=== PATIENT | male | born 1950 | race Caucasian/White ===

== ENCOUNTER → 2016-06-17 | Outpatient (CLI) | payer MEDICARE, BC ==
[2016-06-17 09:31] LABS: EKG EKG PERFORMED
[2016-06-17 10:07] LABS: Partial Thromboplastin Time 24.9 sec (22.0-30.0)
[2016-06-17 10:09] LABS: CH 30.5; CHCM 32.5; HCT 42.8 % (39.0-53.0); HDW 2.47; MCH 30.8 pg (25.0-35.0); MCHC 32.7 g/dL (31.0-37.0); MCV 94.1 fL (80.0-100.0); Mean Platelet Volume 7.2; RBC 4.55 m/uL (4.30-5.90); RDW 12.7 % (11.5-15.5); WBC 5.9 k/uL (3.8-10.6)
--- NOTE | 2016-06-17 10:14 | XR ---
EXAMINATION TYPE: XR chest 2V DATE OF EXAM: 06/17/2016 9:59 AM COMPARISON: Prior chest x-ray 23 June 2015 HISTORY: Preop for spine surgery, radiculitis thoracic spine TECHNIQUE: Frontal and lateral views of the chest are obtained. FINDINGS: Postop changes are present in the cervical thoracic junction level as on prior exam. No pn eumonia, pneumothorax, or pleural effusion. Cardiac mediastinal silhouette, pulmonary vascularity and millie within normal limits accounting for patient rotation. There are prominent lung volumes suggesti ng underlying COPD. IMPRESSION: No acute cardiopulmonary process. Stable exam.
[2016-06-17 10:28] LABS: Anion Gap 11 mmol/L; Blood Urea Nitrogen 3 mg/dL (9-20); Calcium 9.4 mg/dL (8.4-10.2); Carbon Dioxide 31 mmol/L (22-30); Chloride 101 mmol/L (98-107); Glucose 104 mg/dL (74-99); Non-African American GFR(MDRD) >60 (>60 ml/min/1.73 sqM); Potassium 4.2 mmol/L (3.5-5.1); Sodium 143 mmol/L (137-145)
[2016-06-17 10:33] LABS: Appearance,Urine Clear (Clear); Bilirubin,Urine Negative (Negative); Glucose,Urine (UA) Negative (Negative); Ketones,Urine Negative (Negative); Leukocyte Esterase,Urine Negative (Negative); Nitrite,Urine Negative (Negative); Protein,Urine Negative (Negative); Specific Gravity,Urine 1.005 (1.001-1.035); UA Billing (MACRO vs. MICRO) CHEM; Urobilinogen,Urine <2.0 mg/dL (<2.0)
== END | disposition home or self-care (01) ==
LOC: LABWHC1 09:19
PROVIDERS: ATTEND Neurological Surgery
DX: M54.14 Radiculopathy, thoracic region (principal)
CPT/HCPCS: 36415; 71020; 80048; 81003; 85027; 85610; 85730; 87086; 93005

== ENCOUNTER → 2016-09-07 | Outpatient (CLI) | payer MEDICARE, BC ==
[2016-09-07 08:57] LABS: Potassium 4.2 mmol/L (3.5-5.1)
== END | disposition home or self-care (01) ==
LOC: LABWHC1 08:01
PROVIDERS: ATTEND Otolaryngology
DX: E87.1 Hypo-osmolality and hyponatremia (principal); Z79.899 Other long term (current) drug therapy
CPT/HCPCS: 36415; 80051

== ENCOUNTER 2016-09-24 06:51 | Day surgery (SDC) | payer MEDICARE, BC ==
[~2016-09-24 06:51] MED LIST: LIDOCAINE 1% 20 ML VIAL (10MG/ML) FOR IV START INTRADERMA PRN
[2016-09-24] MEDS: LACTATED RINGERS 1,000 ML IV SCH ×2 (06:58→07:06)
[2016-09-24 07:20] LABS: Glucose,Whole Blood 168 mg/dL (75-99)
[2016-09-24 07:24] VITALS: TEMP 97.4
[2016-09-24] MEDS ORDERED: fentaNYL (PF) 50 MCG/ML 2 ML AMP ONE (07:38)
[2016-09-24] MEDS ORDERED: MIDAZOLAM 2 MG/2 ML VIAL ONE (07:38)
[2016-09-24] MEDS ORDERED: PROPOFOL 10 MG/ML 20 ML VIAL IV ONE (07:38)
--- NOTE | 2016-09-24 07:45 | P.GSHP ---
History of Present Illness H&P Date: 09/24/16 Chief Complaint: GERD, nausea Patient here today for upper endoscopy. He is having complaints of chronic reflux occasional dysphagia and severe nausea. His appetite is very diminished. Tried antinausea medications without success. Past Medical History Past Medical History: Asthma, Cancer, COPD, Dementia, GERD/Reflux, Memory Impairment, Pneumonia, Prostate Disorder, Skin Disorder, Thyroid Disorder Additional Past Medical History / Comment(s): meineires, uti/sepsis in , lung fungus w/scarring, also in past had work injury where he inhaled some sort of toxic gas. back pain, BACK PAIN, HAS BEEN HAVING NAUSEA OFF AND ON FOR PAST YEAR, TONSIL CANCER History of Any Multi-Drug Resistant Organisms: None Reported Past Surgical History: Back Surgery, Ear Surgery, Orthopedic Surgery, Tonsillectomy Additional Past Surgical History / Comment(s): ear, prostate sx(turp). BILAT ROTATOR CUFF REPAIR. 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 RT trigger finger, rt wrist SX, nose SX, WIRE STIMULATOR IN SPINE, COLONOSCOPY, HEMORRHOIDECTOMY. lung fungus with scarring in past. prostate surgery about a month ago Past Anesthesia/Blood Transfusion Reactions: Motion Sickness Past Psychological History: No Psychological Hx Reported Additional Psychological History / Comment(s): pt lives at home with his PEDRO, uses a cane when up denies any recent falls. 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 Smoking Status: Former smoker Past Alcohol Use History: None Reported Additional Past Alcohol Use History / Comment(s): used to smoke a pipe/cigars and occ chew tobacco but quit 1989 Past Drug Use History: None Reported - Past Family History Mother Additional Family Medical History / Comment(s): parkinson Father Family Medical History: CVA/TIA Medications and Allergies Home Medications Medication Instructions Recorded Confirmed Type Cyclobenzaprine [Flexeril] 10 mg PO BID PRN 03/04/15 09/24/16 History Donepezil [Aricept] 10 mg PO AC-LUNCH 03/04/15 09/24/16 History Furosemide [Lasix] 40 mg PO DAILY 03/04/15 09/24/16 History Lansoprazole 30 mg PO AC-SUPPER 03/04/15 09/24/16 History Levothyroxine Sodium [Synthroid] 75 mcg PO DAILY 03/04/15 09/24/16 History Montelukast [Singulair] 10 mg PO HS 03/04/15 09/24/16 History Multivitamins, Thera [Theragran] 1 tab PO DAILY 03/04/15 09/24/16 History Potassium Chloride [Klor-Con 20] 20 meq PO AC-SUPPER 03/04/15 09/24/16 History fentaNYL [Duragesic 100MCG/HR] 100 mcg TRANSDERM Q72H 03/04/15 09/24/16 History Doxazosin Mesylate [Cardura] 8 mg PO BID 06/19/15 09/24/16 History Fluticasone Nasal Bivalve [Flonase 1 spr EA NOSTRIL DAILY PRN 06/19/15 09/24/16 History Nasal Bivalve] Primidone [Mysoline] 50 mg PO TID 06/19/15 09/24/16 History Sennosides [Senokot] 8.6 mg PO BID PRN 06/19/15 09/24/16 History oxyCODONE-APAP 10-325MG [Percocet 1 tab PO BID 06/19/15 09/24/16 History 10-325 mg] Ascorbic Acid [Vitamin C] 500 mg PO DAILY 09/22/16 09/24/16 History Budesonide [Pulmicort] 1 mg INHALATION BID 09/22/16 09/24/16 History Clobetasol Propionate [Temovate] 1 applic TOPICAL DAILY 09/22/16 09/24/16 History Fexofenadine HCl 180 mg PO DAILY 09/22/16 09/24/16 History Mirtazapine [Remeron] 30 mg PO HS 09/22/16 09/24/16 History Prochlorperazine Maleate 10 mg PO DAILY PRN 09/22/16 09/24/16 History SUMAtriptan SUCCINATE [Imitrex] 25 mg PO HS 09/22/16 09/24/16 History Vitamin B Complex 1 each PO DAILY 09/22/16 09/24/16 History Vitamin E (Dl,Tocopheryl Acet) 400 unit PO DAILY 09/22/16 09/24/16 History [Vitamin E] Zolpidem [Ambien] 10 mg PO HS 09/22/16 09/24/16 History diphenhydrAMINE [Benadryl] 12.5 mg PO TID PRN 09/22/16 09/24/16 History diphenhydrAMINE [Benadryl] 25 mg PO HS 09/22/16 09/24/16 History predniSONE 20 mg PO AC-SUPPER 09/22/16 09/24/16 History Allergies Allergy/AdvReac Type Severity Reaction Status Date / Time celecoxib Allergy Unknown Verified 09/22/16 09:29 morphine Allergy Rash/Hives Verified 09/22/16 09:29 omeprazole Allergy Rapid Verified 09/22/16 09:29 Heart Rate Surgical - Exam Vital Signs Temp Pulse Resp BP Pulse Ox 97.4 F L 68 14 134/69 94 L 09/24/16 07:23 09/24/16 07:23 09/24/16 07:23 09/24/16 07:23 09/24/16 07:23 Physical exam: General: Well-developed, well-nourished HEENT: Normocephalic, sclerae nonicteric Abdomen: Nontender, nondistended Extremities: No edema Neuro: Alert and oriented Results - Labs Abnormal Lab Results - Last 24 Hours (Table) 09/24/16 Range/Units 07:16 POC Glucose (mg/dL) 168 H (75-99) mg/dL Assessment and Plan (1) GERD (gastroesophageal reflux disease) Narrative/Plan: Will proceed with upper endoscopy. Status: Acute
--- NOTE | 2016-09-24 07:57 | P.PCN ---
Date of Procedure: 09/24/16 Procedure(s) Performed: Preoperative Dx: GERD Postoperative Dx: Mild gastritis, moderate sized hiatal hernia, distal esophagitis Procedure: EGD with Bx Anesthesia: Sedation Endoscopist: Dr. Marie Specimens: Antrum, distal esophagus Endoscopic Procedure: The patient was on the endoscopy table in the left decubitus position. The Olympus gastroscope was inserted into the oropharynx and passed under direct visualization to the region of the third portion of the duodenum. From that point the scope was slowly withdrawn inspecting all surfaces carefully. There were no neoplastic inflammatory or polypoid lesions throughout the duodenum. The pylorus was widely patent. The stomach was carefully inspected. There was yesterday. A biopsy of the antrum took place to rule out H. pylori. Retroflexion revealed a moderate sized hiatal hernia. GE junction was present about 3 cm above the diaphragmatic hiatus. The esophagus was then carefully examined. There was mild distal esophagitis present and a single biopsy was taken. The patient was then taken to the recovery room in stable condition per anesthesia guidelines. Recommendations: Await biopsy results. Increase antiacids.
[2016-09-24 08:00] VITALS: RESP 16
[2016-09-24 08:36] VITALS: BP 106/70; PULSE 90
== END 2016-09-24 08:47 | disposition home or self-care (01) ==
LOC: ORWHC2ENDO 06:51
PROVIDERS: ATTEND Surgery
DX: K29.50 Unspecified chronic gastritis without bleeding (principal); K21.0 Gastro-esophageal reflux disease with esophagitis; K44.9 Diaphragmatic hernia without obstruction or gangrene; J44.9 Chronic obstructive pulmonary disease, unspecified; F03.90 Unspecified dementia, unspecified severity, without behavioral disturbance, psychotic disturbance, mood disturbance, and anxiety; N42.9 Disorder of prostate, unspecified; E07.9 Disorder of thyroid, unspecified; Z87.891 Personal history of nicotine dependence; Z79.51 Long term (current) use of inhaled steroids; Z79.891 Long term (current) use of opiate analgesic; Z79.52 Long term (current) use of systemic steroids; Z79.899 Other long term (current) drug therapy; Z88.5 Allergy status to narcotic agent; Z88.8 Allergy status to other drugs, medicaments and biological substances
CPT/HCPCS: 88305; 88342; 43239; J2250; J3010; J2704

== ENCOUNTER → 2016-12-20 | Outpatient (CLI) | payer MEDICARE, BC ==
--- NOTE | 2016-12-20 09:55 | US ---
EXAMINATION TYPE: US gallbladder DATE OF EXAM: 12/20/2016 COMPARISON: NONE CLINICAL HISTORY: R10.13 Epigastric pain. Loss of appetite, nausea, weight loss EXAM MEASUREMENTS: Liver Length: 13.0 cm Gallbladder Wall: 0.3 cm CBD: 0.5 cm Right Kidney: 11.2 x 4.3 x 5.1 cm Pancreas: not visualized due to bowel gas Liver: limited vis of left lobe due to bowel gas, otherwise wnl Gallbladder: No stones seen Evidence for sonographic Scott's sign: Yes CBD: wnl Right Kidney: No hydronephrosis or masses seen The pancreas is obscured. Liver is normal in size without evidence of biliary dilatation. The gallbladder is normal without evidence of cholelithiasis. Gallbladder wall measures 3 mm. The dis denisha common hepatic duct measures 5 mm. The right kidney is normal. The intrahepatic IVC is normal. IMPRESSION: NORMAL RIGHT UPPER QUADRANT ULTRASOUND.
== END | disposition home or self-care (01) ==
LOC: RADUSWWP 09:24
PROVIDERS: ATTEND Surgery
DX: R10.13 Epigastric pain (principal)
CPT/HCPCS: 76705

== ENCOUNTER → 2017-02-22 | Outpatient (CLI) | payer MEDICARE, BC ==
--- NOTE | 2017-02-22 12:10 | CT ---
EXAMINATION TYPE: CT brain wo con DATE OF EXAM: 02/22/2017 HISTORY: weight loss (R 63.4 per order) CT DLP: 1047.10 mGycm. Automated Exposure Control for Dose Reduction was Utilized. TECHNIQUE: CT scan of the head is performed without contrast. COMPARISON: CT brain June 24, 2013. FINDINGS: There is no acute intracranial hemorrhage or midline shift identified. There is diffuse v entricular and sulcal prominence consistent with diffuse age-related cerebral atrophy. There is low- attenuation in the left frontal periventricular white matter consistent with chronic small vessel isc hemic change. There is left mastoid surgical change redemonstrated. The globes are intact and the vi sualized sinuses are clear. IMPRESSION: No acute intracranial hemorrhage or midline shift. There is minimal diffuse age-related cerebral atrophy and mild chronic small vessel ischemic change redemonstrated without significant ch osiel from prior CT noted.
--- NOTE | 2017-02-22 12:23 | CT ---
EXAMINATION TYPE: CT chest abdomen wo con DATE OF EXAM: 02/22/2017 COMPARISON: CT chest April 11, 2013 HISTORY: Abnormal weight loss per order. CT DLP: 470.90 mGycm. Automated Exposure Control for Dose Reduction was Utilized. TECHNIQUE: CT scan of the thorax, abdomen and pelvis is performed without IV contrast. FINDINGS: LUNGS: There are some reticulonodular opacities in bilateral lung bases redemonstrated most prominent in the left lower lobe, findings right lower lobe may be new from prior study. There is persistent l inear scarring medially in the left lower lobe. Involvement posterior aspect of lingula may be new fr om prior study. No mario consolidation is seen. No pleural effusion or pneumothorax is present. There is stable 3 mm nodular density right upper lobe on axial image 28. There is stable 6 x 4 mm nodule r ight lower lobe on axial image 38. Some additional scattered micronodules are present bilaterally fel t stable in retrospect. No new greater than 6 mm nodules are clearly seen bilaterally. MEDIASTINUM: There are no greater than 1 cm hilar or mediastinal lymph nodes. No cardiomegaly or pe ricardial effusion is seen. There is coronary artery calcification which is noted marker for coronar y artery disease. OTHER: There is a spinal stimulator device terminating in the upper thoracic spine now noted. LIVER/GB: Tiny dependent density in gallbladder on axial image 64 favor small stone. PANCREAS: No significant abnormality is seen. SPLEEN: No significant abnormality is seen. ADRENALS: No significant abnormality is seen. KIDNEYS: No renal stones or hydronephrosis is present bilaterally. BOWEL: Small hiatal hernia is present. There is no suspicious small or large bowel dilatation. Scatte red diverticula throughout visualized left colon are seen. LYMPH NODES: No greater than 1cm abdominal lymph nodes are appreciated. OSSEOUS STRUCTURES: There is postsurgical change with bilateral interpedicular rods and screws transf ixing L4-L5 level. Artificial disc material is likely present. There is grade 1 anterolisthesis of L4 on L5 measuring roughly 8 mm. There is mild multilevel spurring in the thoracic spine. Exaggerated l umbar lordosis is noted. OTHER: There is mild calcified plaque in the abdominal aorta. IMPRESSION: 1. No suspicious mass or adenopathy is identified. 2. Progression of bilateral basilar reticulonodular infiltrates, acute infectious process cannot be e xcluded in appropriate clinical setting. Clinical correlation advised.
== END | disposition home or self-care (01) ==
LOC: RADCTMAIN 10:44
PROVIDERS: ATTEND Family Medicine
DX: G31.9 Degenerative disease of nervous system, unspecified (principal); I67.82 Cerebral ischemia; R91.8 Other nonspecific abnormal finding of lung field
CPT/HCPCS: 70450; 71250; 74150

== ENCOUNTER → 2018-02-02 | Outpatient (CLI) | payer MEDICARE, BC ==
--- NOTE | 2018-02-02 14:50 | CT ---
EXAMINATION TYPE: CT chest wo con DATE OF EXAM: 02/02/2018 COMPARISON: 02/22/2017 and 04/11/2013 HISTORY: 67-year-old male Cough, SOB TECHNIQUE: Contiguous axial scanning of the chest without IV contrast. Coronal and sagittal reconstru ctions performed. CT DLP: 300.4 mGycm Automated exposure control for dose reduction was used. FINDINGS: Heart normal size with small pericardial effusion measuring up to 9 mm thick. Mild reversal calcifica tions are present. Conventional arch was a branching anatomy and normal caliber to the aorta. A few nonenlarged mediastinal lymph nodes are present. No thoracic lymphadenopathy by CT size criteri a. Redemonstrated tree-in-bud opacities throughout the dependent half of the lungs. These changes have p rogressed on the right. Volume loss and strandy density at the posterior left base largely unchanged suggesting cicatricial atelectasis. 6 mm superior segment right lower lobe pulmonary nodule axial image 29 unchanged from 2013 as is a 4 mm lingular pulmonary nodule axial image 32. No mario consolidation or pleural effusion. Small hiatal hernia. Visualized upper abdomen shows a tiny anterior splenule. Suggestion of tiny 6 mm smaller gallstones. Bones: Moderate degenerative disc disease within the thoracic spine. ACDF hardware. IMPRESSION: 1. EXTENSIVE TREE-IN-BUD OPACITIES WITHIN THE DEPENDENT HALF OF THE BILATERAL LUNGS, INCREASED ON THE RIGHT SIDE IN THE INTERVAL. CORRELATE FOR POSSIBLE INDOLENT/ATYPICAL MYCOBACTERIAL OR FUNGAL INFECTI ONS, BRONCHIOLITIS, OR CHRONIC ASPIRATION. 2. SMALL PERICARDIAL EFFUSION MEASURING 9 MM THICK. 3. A COUPLE PULMONARY NODULES MEASURING UP TO 6 MM ARE STABLE FROM 2013.
== END | disposition home or self-care (01) ==
LOC: RADCTMAIN 11:57
PROVIDERS: ATTEND Internal Medicine Pulmonary Disease
DX: I31.3 Pericardial effusion (noninflammatory) (principal); R91.8 Other nonspecific abnormal finding of lung field
CPT/HCPCS: 71250

== ENCOUNTER → 2018-03-14 | Outpatient (CLI) | payer MEDICARE, BC ==
--- NOTE | 2018-03-14 13:26 | FL ---
EXAMINATION TYPE: FL barium swallow w video DATE OF EXAM: 03/14/2018 COMPARISON: NONE HISTORY: Aspiration pneumonia. FINDINGS: Patient was evaluated in real-time fluoroscopy in the lateral projection while ingesting barium mixe d with liquids and solids. Laryngeal penetration was noted. Lack of inversion of the epiglottis. Larg e vallecular residuals are present. Lack of normal initiation of the swallowing reflex noted. See dic tated report from speech pathology. 2 minutes 50 seconds fluoroscopy time. No images obtained.
== END | disposition home or self-care (01) ==
LOC: RADFLMAIN 10:45
PROVIDERS: ATTEND Otolaryngology
DX: J69.0 Pneumonitis due to inhalation of food and vomit (principal)
CPT/HCPCS: 74230

== ENCOUNTER → 2018-04-06 | Outpatient (CLI) | payer MEDICARE, BC ==
[2018-04-06 10:23] LABS: Blood Urea Nitrogen 10 mg/dL (9-20)
--- NOTE | 2018-04-06 14:45 | CT ---
EXAMINATION TYPE: CT soft tissue neck w con DATE OF EXAM: 04/06/2018 COMPARISON: 05/14/2014 HISTORY: Swelling lump in neck history of tonsillar cancer CT DLP: 363.5 mGycm CONTRAST: Patient injected with 100 mL of Isovue 300. TECHNIQUE: Axial images at 3 mm thick sections. Reconstructed images in the coronal plane and sagitt al plane are reviewed. FINDINGS: Limited CT sections are obtained the lung apices. There is a 0.4 cm nodule in the medial r ight apex. This is stable from comparison. Mild nonspecific infiltrate is through the right suprahila r region. Correlate for atelectasis and pneumonia. Other etiologies are not excluded. CT neck: The torus tubarius and fossa of Rosenmuller are normal. [employer] spaces are normal. Para nasal sinuses and mastoid air cells are clear. Parotid glands appear normal and symmetrical. Submandibular glands, are normal. Parapharyngeal spac es are normal. No suspicious adenopathy is evident. Tonsillar pillars appear symmetrical. The hypopharynx appears within normal limits. Vocal cord level appear symmetrical. Thyroid as visualized is normal. There is an anterior cervical fusion of the lower cervical spine. Degenerative facet changes are pres ent. Within the skull base along the anterior right frontal fossa there is a 0.5 x 1.0 cm hyperdensity. Th is is is along the anterior calvarial margin. This could be a small meningioma. In retrospect, this a ppears to been present on the 02/22/[address] brain. Contrast MRI brain or contrast CT brain can be performed for confirmation. IMPRESSIONS: 1. No suspicious changes to suggest recurrent tonsillar cancer. 2. Suspected small meningioma anterior right frontal lobe. Contrast CT or contrast MRI is recommended for confirmation.
== END | disposition home or self-care (01) ==
LOC: RADCTMAIN 09:49
PROVIDERS: ATTEND Otolaryngology
DX: R22.1 Localized swelling, mass and lump, neck (principal); R13.10 Dysphagia, unspecified
CPT/HCPCS: 82565; 84520; 70491; 36415; Q9967

== ENCOUNTER 2018-04-07 12:45 | Emergency (ER) | payer MEDICARE, BC ==
[2018-04-07 12:55] VITALS: TEMP 98.3
[2018-04-07] MEDS ORDERED: SODIUM CHLORIDE 0.9% 1,000 ML IV SCH (13:15)
--- NOTE | 2018-04-07 13:15 | ED ---
Headache HPI - General Chief Complaint: Headache Stated Complaint: HEADACHE Time Seen by Provider: 04/07/18 12:57 Source: RN notes reviewed, old records reviewed Mode of arrival: ambulatory Limitations: no limitations - History of Present Illness Initial Comments: Patient is a 67-year-old male presents emergency department today with chief complaint of a headache for the past 3 weeks. Patient reports that he has a history of tonsillar cancer, and has been undergoing chemotherapy and radiation treatments. He they reported that they had an abnormal lesion on the front of his brain approximately 3 weeks ago. Patient is concerned due to the increasing headache if there could be worsening mass within his brain. Patient states that he also has been treated for aspiration pneumonia due to his difficulty swallowing post radiation and chemotherapy. Patient recently finished antibiotics and steroids this week. Patient states that he has had no visual changes. 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 He states that since that he's had a abnormal peripheral vision over his right eye. He reports no acute changes within this. He denies any numbness or tingling on arms or legs. He denies any vomiting episodes. Patient reports that feels like a sharp stabbing pain right behind his forehead. He takes multiple pain medication including Percocet, Imitrex, and Tylenol without any relief of his pain. - Related Data Home Medications Medication Instructions Recorded Confirmed Cyclobenzaprine [Flexeril] 10 mg PO BID PRN 03/04/15 09/24/16 Donepezil [Aricept] 10 mg PO AC-LUNCH 03/04/15 09/24/16 Furosemide [Lasix] 40 mg PO DAILY 03/04/15 09/24/16 Lansoprazole 30 mg PO AC-SUPPER 03/04/15 09/24/16 Levothyroxine Sodium [Synthroid] 75 mcg PO DAILY 03/04/15 09/24/16 Montelukast [Singulair] 10 mg PO HS 03/04/15 09/24/16 Multivitamins, Thera [Theragran] 1 tab PO DAILY 03/04/15 09/24/16 Potassium Chloride [Klor-Con 20] 20 meq PO AC-SUPPER 03/04/15 09/24/16 fentaNYL [Duragesic 100MCG/HR] 100 mcg TRANSDERM Q72H 03/04/15 09/24/16 Doxazosin Mesylate [Cardura] 8 mg PO BID 06/19/15 09/24/16 Fluticasone Nasal [place] [Flonase 1 spr EA NOSTRIL DAILY PRN 06/19/15 09/24/16 Nasal [place]] Primidone [Mysoline] 50 mg PO TID 06/19/15 09/24/16 Sennosides [Senokot] 8.6 mg PO BID PRN 06/19/15 09/24/16 oxyCODONE-APAP 10-325MG [Percocet 1 tab PO BID 06/19/15 09/24/16 10-325 mg] Ascorbic Acid [Vitamin C] 500 mg PO DAILY 09/22/16 09/24/16 Budesonide [Pulmicort] 1 mg INHALATION BID 09/22/16 09/24/16 Clobetasol Propionate [Temovate] 1 applic TOPICAL DAILY 09/22/16 09/24/16 Fexofenadine HCl 180 mg PO DAILY 09/22/16 09/24/16 Mirtazapine [Remeron] 30 mg PO HS 09/22/16 09/24/16 Prochlorperazine Maleate 10 mg PO DAILY PRN 09/22/16 09/24/16 SUMAtriptan SUCCINATE [Imitrex] 25 mg PO HS 09/22/16 09/24/16 Vitamin B Complex 1 each PO DAILY 09/22/16 09/24/16 Vitamin E (Dl,Tocopheryl Acet) 400 unit PO DAILY 09/22/16 09/24/16 [Vitamin E] Zolpidem [Ambien] 10 mg PO HS 09/22/16 09/24/16 diphenhydrAMINE [Benadryl] 12.5 mg PO TID PRN 09/22/16 09/24/16 diphenhydrAMINE [Benadryl] 25 mg PO HS 09/22/16 09/24/16 predniSONE 20 mg PO AC-SUPPER 09/22/16 09/24/16 Allergies Allergy/AdvReac Type Severity Reaction Status Date / Time celecoxib Allergy Unknown Verified 04/07/18 15:08 morphine Allergy Rash/Hives Verified 04/07/18 15:08 omeprazole Allergy Rapid Verified 04/07/18 15:08 Heart Rate Review of Systems ROS Statement: Those systems with pertinent positive or pertinent negative responses have been documented in the HPI. ROS Other: All systems not noted in ROS Statement are negative. Past Medical History Past Medical History: Asthma, Cancer, COPD, Dementia, Pneumonia, Prostate Disorder, Thyroid Disorder Additional Past Medical History / Comment(s): meineires, uti/sepsis in -2014, lung fungus w/scarring, also in past had work injury where he inhaled some sort of toxic gas. back pain History of Any Multi-Drug Resistant Organisms: None Reported Past Surgical History: Orthopedic Surgery, Tonsillectomy Additional Past Surgical History / Comment(s): ear, prostate sx(turp). shoulder. 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 trigger finger, rt wrist, nose. lung fungus with scarring in past. prostate surgery about a month ago Past Anesthesia/Blood Transfusion Reactions: Motion Sickness Past Psychological History: No Psychological Hx Reported Smoking Status: Current every day smoker Past Alcohol Use History: Occasional Past Drug Use History: None Reported - Past Family History Mother Additional Family Medical History / Comment(s): parkinson Father Family Medical History: CVA/TIA General Exam - General Exam Comments Initial Comments: 67-year-old male. Alert and oriented 3. Patient appears in no acute distress. Limitations: no limitations General appearance: alert, in no apparent distress Head exam: Present: atraumatic, normocephalic, normal inspection Eye exam: Present: normal appearance, PERRL, EOMI, other (Pinpoint pupils. Patient relates that is due to his opiate pain medication.). Absent: scleral icterus, conjunctival injection, periorbital swelling ENT exam: Present: normal exam, mucous membranes moist Neck exam: Present: normal inspection. Absent: tenderness, meningismus, lymphadenopathy Respiratory exam: Present: wheezes (Patient has evidence of wheezing on the right lower lung base.). Absent: normal lung sounds bilaterally, respiratory distress, rales, rhonchi, stridor Cardiovascular Exam: Present: regular rate, normal rhythm, normal heart sounds. Absent: systolic murmur, diastolic murmur, rubs, gallop, clicks GI/Abdominal exam: Present: soft, normal bowel sounds. Absent: distended, tenderness, guarding, rebound, rigid Extremities exam: Present: normal inspection, full ROM, normal capillary refill. Absent: tenderness, pedal edema, joint swelling, calf tenderness Back exam: Present: normal inspection Neurological exam: Present: alert, oriented X3, CN II-XII intact Psychiatric exam: Present: normal affect, normal mood Skin exam: Present: warm, dry, intact, normal color. Absent: rash Course Vital Signs 04/07/18 04/07/18 12:53 14:34 Temperature 98.3 F Pulse Rate 90 64 Respiratory 20 18 Rate Blood Pressure 99/54 124/82 O2 Sat by Pulse 99 97 Oximetry Medical Decision Making - Medical Decision Making 67-year-old presents emergency department today with chief complaint of persistent headache for 3 weeks. He's been on multiple medications including pain medication and Imitrex from PCP. They report no significant improvement of his headache. At this time Patient has no neurological deficits. Pupils are pinpoint due to his pain medications. Patient at this time has no fever or chills. He also has been treated recently for pneumonia with steroids and antibiotics. Recently finished steroids within the past week. Vital signs have been stable. Blood work does show evidence of leukocytosis most likely reflective steroid use. Patient CT of his brain was negative for any acute process. I discussed that at this time with normal CT and normal lab work does not have for his persistent headache. is no meningeal signs. He has been advised to have close follow-up with his primary care physician and ENT specialist. Discussed return parameters. Discussed the case with Dr. Forrest. - Lab Data Result diagrams: 04/07/18 13:10 04/07/18 13:10 Lab Results 04/07/18 04/07/18 04/07/18 Range/Units 13:10 13:10 13:10 WBC 20.2 H (3.8-10.6) k/uL RBC 4.01 L (4.30-5.90) m/uL Hgb 11.3 L (13.0-17.5) gm/dL Hct 35.6 L (39.0-53.0) % MCV 88.8 (80.0-100.0) fL MCH 28.1 (25.0-35.0) pg MCHC 31.6 (31.0-37.0) g/dL RDW 16.6 H (11.5-15.5) % Plt Count 281 (150-450) k/uL Neutrophils % 91 % Lymphocytes % 6 % Monocytes % 2 % Eosinophils % 0 % Basophils % 0 % Neutrophils # 18.3 H (1.3-7.7) k/uL Lymphocytes # 1.3 (1.0-4.8) k/uL Monocytes # 0.5 (0-1.0) k/uL Eosinophils # 0.0 (0-0.7) k/uL Basophils # 0.0 (0-0.2) k/uL Hypochromasia Slight Anisocytosis Slight PT (9.0-12.0) sec INR (<1.2) APTT (22.0-30.0) sec Sodium 139 (137-145) mmol/L Potassium 4.5 (3.5-5.1) mmol/L Chloride 105 (98-107) mmol/L Carbon Dioxide 27 (22-30) mmol/L Anion Gap 7 mmol/L BUN 13 (9-20) mg/dL Creatinine 0.99 (0.66-1.25) mg/dL Est GFR (CKD-EPI)AfAm >90 (>60 ml/min/1.73 sqM) Est GFR (CKD-EPI)NonAf 79 (>60 ml/min/1.73 sqM) Glucose 100 H (74-99) mg/dL Plasma Lactic Acid Juaquin 1.0 (0.7-2.0) mmol/L Calcium 9.4 (8.4-10.2) mg/dL Total Bilirubin 0.5 (0.2-1.3) mg/dL AST 22 (17-59) U/L ALT 16 L (21-72) U/L Alkaline Phosphatase 74 (38-126) U/L Troponin I (0.000-0.034) ng/mL Total Protein 6.5 (6.3-8.2) g/dL Albumin 3.4 L (3.5-5.0) g/dL Urine Color Urine Appearance (Clear) Urine pH (5.0-8.0) Ur Specific [place] (1.001-1.035) Urine Protein (Negative) Urine Glucose (UA) (Negative) Urine Ketones (Negative) Urine Blood (Negative) Urine Nitrite (Negative) Urine Bilirubin (Negative) Urine Urobilinogen (<2.0) mg/dL Ur Leukocyte Esterase (Negative) 04/07/18 04/07/18 04/07/18 Range/Units 13:10 13:10 14:35 WBC (3.8-10.6) k/uL RBC (4.30-5.90) m/uL Hgb (13.0-17.5) gm/dL Hct (39.0-53.0) % MCV (80.0-100.0) fL MCH (25.0-35.0) pg MCHC (31.0-37.0) g/dL RDW (11.5-15.5) % Plt Count (150-450) k/uL Neutrophils % % Lymphocytes % % Monocytes % % Eosinophils % % Basophils % % Neutrophils # (1.3-7.7) k/uL Lymphocytes # (1.0-4.8) k/uL Monocytes # (0-1.0) k/uL Eosinophils # (0-0.7) k/uL Basophils # (0-0.2) k/uL Hypochromasia Anisocytosis PT 10.5 (9.0-12.0) sec INR 1.1 (<1.2) APTT 26.2 (22.0-30.0) sec Sodium (137-145) mmol/L Potassium (3.5-5.1) mmol/L Chloride (98-107) mmol/L Carbon Dioxide (22-30) mmol/L Anion Gap mmol/L BUN (9-20) mg/dL Creatinine (0.66-1.25) mg/dL Est GFR (CKD-EPI)AfAm (>60 ml/min/1.73 sqM) Est GFR (CKD-EPI)NonAf (>60 ml/min/1.73 sqM) Glucose (74-99) mg/dL Plasma Lactic Acid [place] (0.7-2.0) mmol/L Calcium (8.4-10.2) mg/dL Total Bilirubin (0.2-1.3) mg/dL AST (17-59) U/L ALT (21-72) U/L Alkaline Phosphatase (38-126) U/L Troponin I <0.012 (0.000-0.034) ng/mL Total Protein (6.3-8.2) g/dL Albumin (3.5-5.0) g/dL Urine Color Yellow Urine Appearance Clear (Clear) Urine pH 6.0 (5.0-8.0) Ur Specific [place] 1.014 (1.001-1.035) Urine Protein Negative (Negative) Urine Glucose (UA) Negative (Negative) Urine Ketones Negative (Negative) Urine Blood Negative (Negative) Urine Nitrite Negative (Negative) Urine Bilirubin Negative (Negative) Urine Urobilinogen <2.0 (<2.0) mg/dL Ur Leukocyte Esterase Negative (Negative) 04/07/18 13:48 Normal sinus rhythm normal EKG. Ventricular rate of 74 bpm. TN interval is 172 ms. QRS duration 80 ms. QT QTc is 362/401 ms. No evidence of ST elevation or T-wave inversion. - Radiology Data Radiology results: report reviewed CT of the brain is negative for any acute process. No evidence for acute pulmonary disease on chest x-ray. Disposition Clinical Impression: Persistent headaches, Leukocytosis (leucocytosis) Disposition: HOME SELF-CARE Condition: Stable Instructions: Acute Headache (ED) Additional Instructions: Continue prescribed medication at home. Follow-up with PCP. Return to emergency department if any alarming signs or symptoms occur. Is patient prescribed a controlled substance at d/c from ED?: No Referrals: Ricardo Stack MD [Primary Care Provider] - 1-2 days Time of Disposition: 15:37
[2018-04-07] MEDS: SODIUM CHLORIDE 0.9% 500 ML 500 ML IV SCH ×2 (13:24→14:00)
[2018-04-07 13:41] LABS: Anisocytosis Slight; Basophils % (A) 0 %; Eosinophils % (A) 0 %; HCT 35.6 % (39.0-53.0); HGB 11.3 gm/dL (13.0-17.5); Hypochromasia Slight; Lymphocytes # (A) 1.3 k/uL (1.0-4.8); Lymphocytes % (A) 6 %; MCH 28.1 pg (25.0-35.0); MCHC 31.6 g/dL (31.0-37.0); MCV 88.8 fL (80.0-100.0); Mean Platelet Volume 7.2; Monocytes # (A) 0.5 k/uL (0-1.0); Monocytes % (A) 2 %; Neutrophils # (A) 18.3 k/uL (1.3-7.7); Neutrophils % (A) 91 %; Platelet Count 281 k/uL (150-450); RBC 4.01 m/uL (4.30-5.90); RDW 16.6 % (11.5-15.5); WBC 20.2 k/uL (3.8-10.6)
[2018-04-07] MEDS ORDERED: METOCLOPRAMIDE 5 MG/ML 2 ML VIAL IVP STA (13:47)
[2018-04-07] MEDS ORDERED: diphenhydrAMINE 25 MG CAP PO STA (13:47)
[2018-04-07 13:53] LABS: ALT 16 U/L (21-72); AST 22 U/L (17-59); Albumin 3.4 g/dL (3.5-5.0); Alkaline Phosphatase 74 U/L (38-126); Anion Gap 7 mmol/L; Blood Urea Nitrogen 13 mg/dL (9-20); Calcium 9.4 mg/dL (8.4-10.2); Carbon Dioxide 27 mmol/L (22-30); Chloride 105 mmol/L (98-107); Glucose 100 mg/dL (74-99); INR 1.1 (<1.2); Partial Thromboplastin Time 26.2 sec (22.0-30.0); Potassium 4.5 mmol/L (3.5-5.1); Prothrombin Time 10.5 sec (9.0-12.0); Sodium 139 mmol/L (137-145); Total Bilirubin 0.5 mg/dL (0.2-1.3); Total Protein 6.5 g/dL (6.3-8.2)
--- NOTE | 2018-04-07 14:06 | XR ---
EXAMINATION TYPE: XR chest 2V DATE OF EXAM: 04/07/2018 COMPARISON: NONE HISTORY: Shortness of breath TECHNIQUE: Frontal and lateral views of the chest are obtained. FINDINGS: Scattered senescent parenchymal changes noted. Hyperinflation compatible with COPD. No evidence for infiltrate. No evidence for atelectasis. Heart size is stable. Mediastinal structures are stable and grossly unremarkable. No evidence for hilar prominence. Degenerative changes dorsal spine. IMPRESSION: 1. No evidence for acute pulmonary disease.
[2018-04-07 14:36] VITALS: RESP 18
--- NOTE | 2018-04-07 14:38 | CT ---
EXAMINATION TYPE: CT brain wo con DATE OF EXAM: 04/07/2018 COMPARISON: 02/22/2017 INDICATION: Stabbing headache DLP: 11009.4 mGycm, Automated exposure control for dose reduction was used. CONTRAST: None CT of the brain is performed utilizing 3 mm thick sections through the posterior fossa and 3 mm thick sections through the remaining calvarium. Study is performed within 24 hours of arrival to the hosp [facility]. No abnormal hyperdensity is present to suggest an acute intracranial hemorrhage. No mass lesion is evident. No acute infarcts are evident. Ventricles and sulci are appropriate for the patient age. Paranasal sinuses and mastoid air cells within the [id number] are clear. Postsurgical changes are within the left mastoid air cells. IMPRESSIONS: 1. No acute intracranial process.
[2018-04-07 15:06] LABS: Appearance,Urine Clear (Clear); Bilirubin,Urine Negative (Negative); Blood,Urine Negative (Negative); Color,Urine Yellow; Glucose,Urine (UA) Negative (Negative); Ketones,Urine Negative (Negative); Leukocyte Esterase,Urine Negative (Negative); Nitrite,Urine Negative (Negative); Protein,Urine Negative (Negative); Specific Gravity,Urine 1.014 (1.001-1.035); Urobilinogen,Urine <2.0 mg/dL (<2.0)
[2018-04-07] MEDS ORDERED: KETOROLAC 30 MG/ML 1 ML VIAL IVP STA (15:27)
[2018-04-07] MEDS ORDERED: HYDROmorphone 1 MG/ML 1 ML SYRINGE IVP STA (15:27)
[2018-04-07 16:03] VITALS: BP 120/76; PULSE 72
== END 2018-04-07 16:09 | disposition home or self-care (01) ==
LOC: EC 12:45
DX: D72.829 Elevated white blood cell count, unspecified (principal); R51 Headache; J44.9 Chronic obstructive pulmonary disease, unspecified; F03.90 Unspecified dementia, unspecified severity, without behavioral disturbance, psychotic disturbance, mood disturbance, and anxiety; E07.9 Disorder of thyroid, unspecified; F17.200 Nicotine dependence, unspecified, uncomplicated; Z87.438 Personal history of other diseases of male genital organs; Z86.73 Personal history of transient ischemic attack (TIA), and cerebral infarction without residual deficits; Z82.3 Family history of stroke; Z86.69 Personal history of other diseases of the nervous system and sense organs; Z85.818 Personal history of malignant neoplasm of other sites of lip, oral cavity, and pharynx; Z85.89 Personal history of malignant neoplasm of other organs and systems; Z92.21 Personal history of antineoplastic chemotherapy; Z79.891 Long term (current) use of opiate analgesic; Z79.51 Long term (current) use of inhaled steroids; Z79.52 Long term (current) use of systemic steroids; Z79.899 Other long term (current) drug therapy; Z88.6 Allergy status to analgesic agent; Z88.5 Allergy status to narcotic agent; Z88.8 Allergy status to other drugs, medicaments and biological substances
CPT/HCPCS: 36415; 93005; 80053; 83605; 84484; 85025; 85610; 85730; 81003; 87040; 87086; 71046; 70450; 99285; 96374; 96375 ×2; 96361 ×3; J2765; J1885; J1170

== ENCOUNTER 2018-07-01 11:21 | Emergency (ER) | payer MEDICARE, BC ==
[2018-07-01 11:27] VITALS: TEMP 98.2
[2018-07-01] MEDS ORDERED: HYDROmorphone 1 MG/ML 1 ML SYRINGE IM STA (11:39)
--- NOTE | 2018-07-01 11:42 | ED ---
General Adult HPI - General Chief complaint: Extremity Injury, Upper Stated complaint: Neck/Shoulder Pain Time Seen by Provider: 07/01/18 11:30 Source: patient Mode of arrival: ambulatory Limitations: no limitations - Related Data Home Medications Medication Instructions Recorded Confirmed Cyclobenzaprine [Flexeril] 10 mg PO BID PRN 03/04/15 04/07/18 Donepezil [Aricept] 10 mg PO DAILY 03/04/15 04/07/18 Lansoprazole 30 mg PO DAILY 03/04/15 04/07/18 Levothyroxine Sodium [Synthroid] 75 mcg PO DAILY 03/04/15 04/07/18 Montelukast [Singulair] 10 mg PO HS 03/04/15 04/07/18 Multivitamins, Thera [Theragran] 1 tab PO DAILY 03/04/15 04/07/18 fentaNYL [Duragesic 100MCG/HR] 100 mcg TRANSDERM Q48H 03/04/15 04/07/18 Fluticasone Nasal [place] [Flonase 1 spr EA NOSTRIL DAILY PRN 06/19/15 04/07/18 Nasal [place]] Primidone [Mysoline] 50 mg PO TID PRN 06/19/15 04/07/18 oxyCODONE-APAP 10-325MG [Percocet 0.5 tab PO BID 06/19/15 04/07/18 10-325 mg] Ascorbic Acid [Vitamin C] 500 mg PO DAILY 09/22/16 04/07/18 Budesonide [Pulmicort] 1 mg INHALATION RT-BID 09/22/16 04/07/18 Clobetasol Propionate [Temovate] 1 applic TOPICAL DAILY 09/22/16 04/07/18 Fexofenadine HCl 180 mg PO DAILY 09/22/16 04/07/18 SUMAtriptan SUCCINATE [Imitrex] 25 mg PO DAILY PRN 09/22/16 04/07/18 Vitamin E (Dl,Tocopheryl Acet) 400 unit PO DAILY 09/22/16 04/07/18 [Vitamin E] diphenhydrAMINE [Benadryl] 25 mg PO TID 09/22/16 04/07/18 ALPRAZolam [Xanax] 0.5 mg PO TID PRN 04/07/18 04/07/18 Albuterol Sulfate [Proair Hfa] 1 - 2 puff INHALATION RT-QID PRN 04/07/18 Artificial Tears-Hypromellose 2 drops RIGHT EYE QID PRN 04/07/18 04/07/18 [Artificial Tear Drops] Aspirin EC [Ecotrin Low Dose] 81 mg PO DAILY 04/07/18 04/07/18 Colace 50mg 50 mg PO BID 04/07/18 04/07/18 DULoxetine HCL [Cymbalta] 20 mg PO DAILY 04/07/18 04/07/18 Diltiazem HCl 60 mg PO BID 04/07/18 04/07/18 Doxazosin [Cardura] 4 mg PO DAILY 04/07/18 04/07/18 Eszopiclone [Lunesta] 3 mg PO HS 04/07/18 04/07/18 Memantine [Namenda] 10 mg PO BID 04/07/18 04/07/18 Naproxen 500 mg PO BID 04/07/18 04/07/18 Nystatin 500,000 unit PO QID 04/07/18 04/07/18 Vitamin D3(Unknown) 1 tab PO DAILY 04/07/18 04/07/18 oxyCODONE HCL/ACETAMINOPHEN 1 tab PO HS 04/07/18 04/07/18 [Percocet 10-325 mg] Allergies Allergy/AdvReac Type Severity Reaction Status Date / Time celecoxib Allergy Unknown Verified 07/01/18 11:24 milk Allergy Unknown Verified 07/01/18 11:24 morphine Allergy Rash/Hives Verified 07/01/18 11:24 omeprazole Allergy Rapid Verified 07/01/18 11:24 Heart Rate Review of Systems ROS Statement: Those systems with pertinent positive or pertinent negative responses have been documented in the HPI. ROS Other: All systems not noted in ROS Statement are negative. Past Medical History Past Medical History: Asthma, Cancer, COPD, Dementia, Pneumonia, Prostate Disorder, Thyroid Disorder Additional Past Medical History / Comment(s): meineires, uti/sepsis in , lung fungus w/scarring, also in past had work injury where he inhaled some sort of toxic gas. back pain History of Any Multi-Drug Resistant Organisms: None Reported Past Surgical History: Orthopedic Surgery, Tonsillectomy Additional Past Surgical History / Comment(s): ear, prostate sx(turp). shoulder. 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 trigger finger, rt wrist, nose. lung fungus with scarring in past. prostate surgery about a month ago Past Anesthesia/Blood Transfusion Reactions: Motion Sickness Past Psychological History: Depression Smoking Status: Former smoker Past Alcohol Use History: None Reported Past Drug Use History: None Reported - Past Family History Mother Additional Family Medical History / Comment(s): parkinson Father Family Medical History: CVA/TIA General Exam Limitations: no limitations Course Vital Signs 07/01/18 11:24 Temperature 98.2 F Pulse Rate 112 H Respiratory 18 Rate Blood Pressure 150/86 O2 Sat by Pulse 96 Oximetry Medical Decision Making - Medical Decision Making Dictation was produced using [employer] dictation software. please excuse any grammatical, word or spelling errors. Chief Complaint: 67-year-old male with multiple comorbidities presents with left trapezius pain. History of Present Illness: Patient 67-year-old male. Patient has chronic pain. His history of cancer. He sees a pain specialist Dr. Pereira. Patient states that since last night he's been having trapezius pain. Patient usually follows up with his pain doctor for issues regarding pain symptoms however the office is closed. Patient denies any trauma to the area. Patient feels worsening symptoms with left upper extremity movement. Patient denies any trauma to the area. Patient denies any acute issues with the left shoulder. The ROS documented in this emergency department record has been reviewed and confirmed by me. Those systems with pertinent positive or negative responses have been documented in the HPI. All other systems are other negative and/or noncontributory. PHYSICAL EXAM: General Impression: Alert and oriented x3, not in acute distress HEENT: Normocephalic atraumatic, extra-ocular movements intact, pupils equal and reactive to light bilaterally, mucous membranes moist. Cardiovascular: Heart regular rate and rhythm, S1&S2 audible, no murmurs, rubs or gallops Chest: Lungs clear to auscultation bilaterally, no rhonchi, no wheeze, no rales Abdomen: Bowel sounds present, abdomen soft, non-tender, non-distended, no organomegaly Musculoskeletal: Pulses present and equal in all extremities, no peripheral edema, tenderness to palpation of the left trapezius. Motor: Power 5/5 bilaterally, no focal deficits noted Neurological: CN II-XII grossly intact, no focal motor or sensory deficits noted Skin: Intact with no visualized rashes Psych: Normal affect and mood ED course: Patient 67-year-old male. He has chronic pain syndrome. Patient takes heavy-duty narcotics on a regular basis prescribed by pain specialist. Signs upon arrival are within acceptable limits. Patient is well-appearing. Patient is reproduced with palpation to the left trapezius area and with manipulation of the left upper extremity. No indication for imaging at this time. Patient given IM Dilaudid for relief. He still to follow-up with his pain specialist on Tuesday. She understandable agreeable to plan. Disposition Clinical Impression: Shoulder strain Disposition: HOME SELF-CARE Condition: Good Instructions (If sedation given, give patient instructions): Safe Use of Narcotics (ED) Is patient prescribed a controlled substance at d/c from ED?: No Referrals: Jesus Pereira DO [Doctor of Osteopathic Medicine] - 1-2 days Time of Disposition: 11:42
[2018-07-01 12:10] VITALS: BP 122/64; PULSE 87; RESP 16
== END 2018-07-01 12:10 | disposition home or self-care (01) ==
LOC: EC 11:21
DX: S46.912A Strain of unspecified muscle, fascia and tendon at shoulder and upper arm level, left arm, initial encounter (principal); G89.4 Chronic pain syndrome; J44.9 Chronic obstructive pulmonary disease, unspecified; N42.9 Disorder of prostate, unspecified; F03.90 Unspecified dementia, unspecified severity, without behavioral disturbance, psychotic disturbance, mood disturbance, and anxiety; E07.9 Disorder of thyroid, unspecified; F32.9 Major depressive disorder, single episode, unspecified; Z87.891 Personal history of nicotine dependence; Z88.5 Allergy status to narcotic agent; Z88.6 Allergy status to analgesic agent; Z88.8 Allergy status to other drugs, medicaments and biological substances; Z91.011 Allergy to milk products; Z79.1 Long term (current) use of non-steroidal anti-inflammatories (NSAID); Z79.51 Long term (current) use of inhaled steroids; Z79.82 Long term (current) use of aspirin; Z79.890 Hormone replacement therapy; Z79.891 Long term (current) use of opiate analgesic; Z79.899 Other long term (current) drug therapy; Z87.01 Personal history of pneumonia (recurrent); Z85.818 Personal history of malignant neoplasm of other sites of lip, oral cavity, and pharynx; Z92.21 Personal history of antineoplastic chemotherapy; Z92.3 Personal history of irradiation; Z90.89 Acquired absence of other organs; Z98.890 Other specified postprocedural states; X58.XXXA Exposure to other specified factors, initial encounter
CPT/HCPCS: 99283; 96372; J1170

== ENCOUNTER → 2018-12-29 | Outpatient (CLI) | payer MEDICARE, BC ==
[2018-12-29 09:28] LABS: Basophils % (A) 1 %; Eosinophils # (A) 0.1 k/uL (0-0.7); Eosinophils % (A) 2 %; HCT 36.4 % (39.0-53.0); HGB 11.4 gm/dL (13.0-17.5); Lymphocytes % (A) 17 %; MCH 29.7 pg (25.0-35.0); MCHC 31.3 g/dL (31.0-37.0); MCV 94.7 fL (80.0-100.0); Mean Platelet Volume 7.9; Monocytes # (A) 0.3 k/uL (0-1.0); Monocytes % (A) 5 %; Neutrophils % (A) 72 %; Platelet Count 148 k/uL (150-450); RBC 3.84 m/uL (4.30-5.90); RDW 15.7 % (11.5-15.5); WBC 5.5 k/uL (3.8-10.6)
[2018-12-29 18:15] LABS: Gliadin AB IgA, Unit 39.1 U/mL
[2018-12-29 18:42] LABS: C Reactive Protein 0.5 mg/dL (0.0-0.8)
[2018-12-29 18:51] LABS: T4, Free (Free Thyroxine) 0.9 ng/dL (0.80-1.80)
== END ==
LOC: LABWHC1 08:59
PROVIDERS: ATTEND Internal Medicine
DX: R19.4 Change in bowel habit (principal)
CPT/HCPCS: 36415; 83516; 83630; 84439; 84443; 85025; 86140; 87045; 87046; 87328; 87329

== ENCOUNTER → 2019-02-19 | Outpatient (CLI) | payer MEDICARE, BC ==
[2019-02-19 11:30] VITALS: BMI 21.5
== END | disposition home or self-care (01) ==
LOC: DBWHC3 08:43
PROVIDERS: ATTEND Family Medicine
DX: E11.9 Type 2 diabetes mellitus without complications (principal); K90.0 Celiac disease

== ENCOUNTER 2019-04-20 07:36 | Day surgery (SDC) | payer MEDICARE, BC ==
[~2019-04-20 07:36] MED LIST changes: -LIDOCAINE 1% 20 ML VIAL (10MG/ML) FOR IV START INTRADERMA PRN; +PREMYELOGRAM MEDICATION REVIEW 1 EACH MISC PO ONE
[2019-04-20] MEDS ORDERED: DIAZEPAM 5 MG TAB PO STA (08:39)
[2019-04-20 09:14] VITALS: TEMP 98.1
[2019-04-20] MEDS ORDERED: HYDROcodone/APAP 5-325MG 1 EACH TAB PO PRN (09:50)
--- NOTE | 2019-04-20 10:35 | FL ---
EXAMINATION TYPE: [place] myelogram lumbosacral DATE OF EXAM: 04/20/2019 COMPARISON: CT chest abdomen dated 02/22/2017 HISTORY: Chronic back pain with prior lumbar surgery. Chronic pain syndrome. PROCEDURE/TECHNIQUE: Informed consent was obtained and all the patient's questions were answered. Th e L3-L4 level was localized under fluoroscopy. Standard sterile technique was utilized as well as ap propriate local anesthesia 1% Lidocaine. Spinal needle was introduced into the thecal sac under fluo roscopic guidance and 10 mL's of Isovue-M 300 was injected. The patient tolerated the procedure well and left the department in stable condition. CT myelography is to follow. IMPRESSION: Successful myelography lumbar spine.
--- NOTE | 2019-04-20 10:55 | CT ---
EXAMINATION TYPE: CT lumbar spine w con DATE OF EXAM: 04/20/2019 COMPARISON: None HISTORY: Chronic pain syndrome CT DLP: 440.3 mGycm Automated exposure control for dose reduction was used. CONTRAST: CT scan of the lumbar is performed with intrathecal contrast, patient injected with 10mL of Isovue M3 00. TECHNIQUE: CT of the lumbar spine was performed. Bone and soft tissue window settings are submitted as well as coronal and sagittal reconstructions. FINDINGS: There is grade 1 anterolisthesis of L4 on L5, surgically fixated. This measures approximate ly 9 mm. Remainder of the lumbar spine vertebral bodies maintain normal alignment. Vertebral body hei ghts are maintained throughout. Conus medullaris is unremarkable terminating at L1. There are multiple incidentally noted renal calculi bilaterally. On the right there is a re-millimete r calculus in the midpole and 1.3 cm calculus in the lower pole. On the left there is partial visuali zation of a mid pole calculus. Spinal nerve root stimulator is partially visualized as well as genera lized muscular atrophy of the paraspinal muscles. There is also mild diffuse osseous demineralization . L1-L2: Small broad-based disc bulge without spinal canal stenosis nor neural foraminal narrowing. L2-L3: There is a broad-based disc bulge and facet arthropathy resulting in mild bilateral neural for aminal narrowing without spinal canal stenosis. L3-L4: Extensive spray artifact does somewhat limit evaluation at this level however intrathecal cont rast does aid in evaluation. There is severe right and moderate left neural foraminal narrowing secon william to facet arthropathy and a broad-based disc bulge. No significant spinal canal stenosis is seen. L4-L5: There is surgical removal of the posterior elements without spinal canal stenosis. There is di sc uncovering from the anterolisthesis. Moderate bilateral neural foraminal narrowing is seen. Facet arthropathy is present. L5-S1: There is facet arthropathy and resection of the posterior elements. Broad-based disc bulge is seen resulting in mild bilateral neural foraminal narrowing. No spinal canal stenosis. IMPRESSION: 1. Grade 1 anterolisthesis of L4 on L5, surgically fixated. 2. No focal disc herniation is seen however multilevel facet arthropathy and broad-based disc bulges creating variable degrees of neural foraminal narrowing as detailed above most severe at L3-L4 on the right and moderate at L3-L4 on the left. No spinal canal stenosis is seen. 3. Incidentally noted multiple renal calculi bilaterally.
[2019-04-20 17:01] VITALS: RESP 16
[2019-04-20 17:16] VITALS: BP 123/68; PULSE 77
== END 2019-04-20 14:05 | disposition home or self-care (01) ==
LOC: RADPROMAIN 07:36
PROVIDERS: ATTEND Physical Medicine & Rehabilitation
DX: M43.16 Spondylolisthesis, lumbar region (principal); M47.26 Other spondylosis with radiculopathy, lumbar region; M51.16 Intervertebral disc disorders with radiculopathy, lumbar region; G89.4 Chronic pain syndrome; G24.3 Spasmodic torticollis; M47.814 Spondylosis without myelopathy or radiculopathy, thoracic region; M79.12 Myalgia of auxiliary muscles, head and neck; M54.12 Radiculopathy, cervical region; H91.90 Unspecified hearing loss, unspecified ear; R26.81 Unsteadiness on feet; J45.909 Unspecified asthma, uncomplicated; M19.90 Unspecified osteoarthritis, unspecified site; E03.9 Hypothyroidism, unspecified; F41.9 Anxiety disorder, unspecified; F32.9 Major depressive disorder, single episode, unspecified; M41.9 Scoliosis, unspecified; R41.3 Other amnesia; K90.0 Celiac disease; Z87.81 Personal history of (healed) traumatic fracture; Z98.1 Arthrodesis status; Z92.3 Personal history of irradiation; Z79.899 Other long term (current) drug therapy; Z79.890 Hormone replacement therapy; Z79.1 Long term (current) use of non-steroidal anti-inflammatories (NSAID); Z79.891 Long term (current) use of opiate analgesic; Z79.82 Long term (current) use of aspirin; Z85.89 Personal history of malignant neoplasm of other organs and systems; Z87.11 Personal history of peptic ulcer disease; Z97.3 Presence of spectacles and contact lenses; Z88.5 Allergy status to narcotic agent; Z91.011 Allergy to milk products; Z98.890 Other specified postprocedural states; Z87.891 Personal history of nicotine dependence
CPT/HCPCS: 62304; 72132; J2001; Q9967

== ENCOUNTER 2019-06-25 13:55 | Inpatient (IN) | payer MEDICARE, BC ==
[2019-06-25] MEDS ORDERED: IPRATROPIUM-ALBUTEROL 3 ML NEB INHALATION STA (14:12)
[2019-06-25] MEDS ORDERED: methylPREDNISolone SOD SUCCI 125 MG/2 ML VIAL IV STA (14:12)
--- NOTE | 2019-06-25 14:24 | ED ---
General Adult HPI - General Chief complaint: Shortness of Breath Stated complaint: SOB Time Seen by Provider: 06/25/19 14:08 Source: patient, RN notes reviewed Mode of arrival: ambulatory Limitations: no limitations - History of Present Illness Initial comments: Patient is a pleasant 68-year-old male sitting to the emergency department with difficulty in breathing. Onset of symptoms was last night. Patient does have occasional cough with minimal sputum, unclear what color. Patient does have history of COPD with similar symptoms. No chest pain. does admit patient does have some mild leg swelling which is new. Patient is unaware of this. 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 No fevers. - Related Data Home Medications Medication Instructions Recorded Confirmed Donepezil [Aricept] 10 mg PO DAILY 03/04/15 04/11/19 Lansoprazole 30 mg PO DAILY 03/04/15 04/20/19 Levothyroxine Sodium [Synthroid] 75 mcg PO DAILY 03/04/15 04/11/19 Montelukast [Singulair] 10 mg PO HS 03/04/15 04/20/19 Multivitamins, Thera [Theragran] 1 tab PO DAILY 03/04/15 04/20/19 fentaNYL [Duragesic 100MCG/HR] 100 mcg TRANSDERM Q48H 03/04/15 04/20/19 Fluticasone Nasal [place] [Flonase 1 spr EA NOSTRIL DAILY PRN 06/19/15 04/20/19 Nasal [place]] Primidone [Mysoline] 50 mg PO TID PRN 06/19/15 04/20/19 oxyCODONE-APAP 10-325MG [Percocet 0.5 tab PO BID 06/19/15 04/20/19 10-325 mg] Ascorbic Acid [Vitamin C] 500 mg PO DAILY 09/22/16 04/20/19 Budesonide [Pulmicort] 1 mg INHALATION RT-BID 09/22/16 04/20/19 Fexofenadine HCl 180 mg PO DAILY 09/22/16 04/20/19 SUMAtriptan SUCCINATE [Imitrex] 25 mg PO DAILY PRN 09/22/16 04/20/19 Vitamin E (Dl,Tocopheryl Acet) 400 unit PO DAILY 09/22/16 04/20/19 [Vitamin E] ALPRAZolam [Xanax] 0.5 mg PO TID PRN 04/07/18 04/20/19 Albuterol Sulfate [Proair Hfa] 1 - 2 puff INHALATION RT-QID PRN 04/07/18 04/20/19 Aspirin EC [Ecotrin Low Dose] 81 mg PO DAILY 04/07/18 04/20/19 DULoxetine HCL [Cymbalta] 20 mg PO DAILY 04/07/18 04/20/19 Diltiazem HCl 60 mg PO BID 04/07/18 04/20/19 Doxazosin [Cardura] 4 mg PO DAILY 04/07/18 04/20/19 Eszopiclone [Lunesta] 3 mg PO HS 04/07/18 04/20/19 Memantine [Namenda] 10 mg PO BID 04/07/18 04/11/19 Naproxen 500 mg PO BID 04/07/18 04/11/19 Vitamin D3(Unknown) 1 tab PO DAILY 04/07/18 04/20/19 oxyCODONE HCL/ACETAMINOPHEN 1 tab PO HS 04/07/18 04/20/19 [Percocet 10-325 mg] Furosemide [Lasix] 20 mg PO DAILY 04/11/19 04/20/19 Potassium 99 mg PO DAILY 04/11/19 04/20/19 metroNIDAZOLE [Flagyl] 500 mg PO QID 04/19/19 04/20/19 Allergies Allergy/AdvReac Type Severity Reaction Status Date / Time celecoxib Allergy Unknown Verified 04/20/19 08:40 gluten Allergy Rash/Hives Verified 04/20/19 08:40 milk Allergy Unknown Verified 04/20/19 08:40 morphine Allergy Rash/Hives Verified 04/20/19 08:40 omeprazole Allergy Rapid Verified 04/20/19 08:40 Heart Rate Review of Systems ROS Statement: Those systems with pertinent positive or pertinent negative responses have been documented in the HPI. ROS Other: All systems not noted in ROS Statement are negative. Constitutional: Denies: fever Eyes: Denies: eye pain ENT: Denies: ear pain Respiratory: Reports: cough, dyspnea Cardiovascular: Denies: chest pain Endocrine: Reports: fatigue Gastrointestinal: Denies: abdominal pain Genitourinary: Denies: dysuria Musculoskeletal: Denies: back pain Skin: Denies: rash Neurological: Denies: weakness Past Medical History Past Medical History: Asthma, Cancer, COPD, Dementia, Pneumonia, Prostate Dis order, Thyroid Disorder Additional Past Medical History / Comment(s): meineires, uti/sepsis in , lung fungus w/scarring, also in past had work injury where he inhaled some sort of toxic gas. back pain. 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 chronic back and neck pain, celiac disease, scoliosis, unsteady gait History of Any Multi-Drug Resistant Organisms: None Reported Past Surgical History: Back Surgery, Orthopedic Surgery, Tonsillectomy Additional Past Surgical History / Comment(s): ear, prostate sx(turp). shoulder. cancer of tonsils with mets to lymph nodes and throat had sx and 6 weeks of chemo/radiation and since radiation has had difficulty swallowing(aspir ation risk) uses thicket. lumbar fusion, cervical fusion, lumbar stimulator. trigger finger, rt wrist, nose. lung fungus with scarring in past. prostate surgery about a month ago,. neck injection for pain in past Past Anesthesia/Blood Transfusion Reactions: Motion Sickness Past Psychological History: Depression Smoking Status: Former smoker Past Alcohol Use History: None Reported Past Drug Use History: None Reported - Past Family History Mother Additional Family Medical History / Comment(s): parkinson Father Family Medical History: CVA/TIA General Exam Limitations: no limitations General appearance: alert Head exam: Present: normocephalic Eye exam: Present: normal appearance, PERRL ENT exam: Present: normal oropharynx Neck exam: Present: normal inspection Respiratory exam: Present: wheezes, rales (Right base), accessory muscle use Cardiovascular Exam: Present: normal rhythm, tachycardia GI/Abdominal exam: Present: soft. Absent: tenderness Extremities exam: Present: pedal edema (Trace bilateral). Absent: calf tenderness Neurological exam: Present: alert Psychiatric exam: Present: normal affect, normal mood Skin exam: Present: normal color Course Vital Signs 06/25/19 06/25/19 06/25/19 13:57 14:16 14:28 Temperature 97.8 F Pulse Rate 116 H 114 H 106 H Respiratory 20 Rate Blood Pressure 147/68 O2 Sat by Pulse 80 L Oximetry 06/25/19 06/25/19 06/25/19 14:32 15:20 15:45 Temperature Pulse Rate 105 H 111 H Respiratory 22 22 20 Rate Blood Pressure 150/71 155/74 O2 Sat by Pulse 92 L 93 L Oximetry EKG Findings - EKG Comments: EKG Findings:: Sinus tachycardia 108. WA 146. QRS 78. QT 328. QTC 439. Normal axis. Normal QRS. No acute ST change. Medical Decision Making - Medical Decision Making Patient reevaluated and is somewhat improved. Patient and family updated on results including severity of disease and plan. Case discussed in detail with Dr. Stack including patient severity who will admit. Patient has previously seen Dr. Troy for pulmonary and he will be placed on consult. Nephrology will also be placed on consult. - Lab Data Result diagrams: 06/25/19 14:15 06/25/19 14:15 Lab Results 06/25/19 06/25/19 06/25/19 Range/Units 12:50 14:15 14:15 WBC 18.0 H (3.8-10.6) k/uL RBC 2.91 L (4.30-5.90) m/uL Hgb 8.6 L (13.0-17.5) gm/dL Hct 27.4 L (39.0-53.0) % MCV 94.3 (80.0-100.0) fL MCH 29.5 (25.0-35.0) pg MCHC 31.3 (31.0-37.0) g/dL RDW 15.8 H (11.5-15.5) % Plt Count 148 L (150-450) k/uL Neutrophils % 96 % Lymphocytes % 1 % Monocytes % 2 % Eosinophils % 0 % Basophils % 0 % Neutrophils # 17.3 H (1.3-7.7) k/uL Lymphocytes # 0.2 L (1.0-4.8) k/uL Monocytes # 0.4 (0-1.0) k/uL Eosinophils # 0.0 (0-0.7) k/uL Basophils # 0.1 (0-0.2) k/uL Hypochromasia Slight PT (9.0-12.0) sec INR (<1.2) APTT (22.0-30.0) sec Sodium 142 (137-145) mmol/L Potassium 5.6 H (3.5-5.1) mmol/L Chloride 111 H (98-107) mmol/L Carbon Dioxide 12 L (22-30) mmol/L Anion Gap 19 mmol/L BUN 73 H (9-20) mg/dL Creatinine 10.42 H* (0.66-1.25) mg/dL Est GFR (CKD-EPI)AfAm 5 (>60 ml/min/1.73 sqM) Est GFR (CKD-EPI)NonAf 5 (>60 ml/min/1.73 sqM) Glucose 154 H (74-99) mg/dL Plasma Lactic Acid Juaquin (0.7-2.0) mmol/L Calcium 8.5 (8.4-10.2) mg/dL Total Bilirubin 1.6 H (0.2-1.3) mg/dL AST 23 (17-59) U/L ALT 13 (4-49) U/L Alkaline Phosphatase 89 (38-126) U/L Creatine Kinase 76 (55-170) U/L Troponin I (0.000-0.034) ng/mL NT-Pro-B Natriuret Pep pg/mL Total Protein 6.5 (6.3-8.2) g/dL Albumin 3.3 L (3.5-5.0) g/dL Influenza Type A RNA Not Detected (Not Detectd) Influenza Type B (PCR) Not Detected (Not Detectd) 06/25/19 06/25/19 06/25/19 Range/Units 14:15 14:15 14:15 WBC (3.8-10.6) k/uL RBC (4.30-5.90) m/uL Hgb (13.0-17.5) gm/dL Hct (39.0-53.0) % MCV (80.0-100.0) fL MCH (25.0-35.0) pg MCHC (31.0-37.0) g/dL RDW (11.5-15.5) % Plt Count (150-450) k/uL Neutrophils % % Lymphocytes % % Monocytes % % Eosinophils % % Basophils % % Neutrophils # (1.3-7.7) k/uL Lymphocytes # (1.0-4.8) k/uL Monocytes # (0-1.0) k/uL Eosinophils # (0-0.7) k/uL Basophils # (0-0.2) k/uL Hypochromasia PT 11.6 (9.0-12.0) sec INR 1.1 (<1.2) APTT 26.7 (22.0-30.0) sec Sodium (137-145) mmol/L Potassium (3.5-5.1) mmol/L Chloride (98-107) mmol/L Carbon Dioxide (22-30) mmol/L Anion Gap mmol/L BUN (9-20) mg/dL Creatinine (0.66-1.25) mg/dL Est GFR (CKD-EPI)AfAm (>60 ml/min/1.73 sqM) Est GFR (CKD-EPI)NonAf (>60 ml/min/1.73 sqM) Glucose (74-99) mg/dL Plasma Lactic Acid Juaquin (0.7-2.0) mmol/L Calcium (8.4-10.2) mg/dL Total Bilirubin (0.2-1.3) mg/dL AST (17-59) U/L ALT (4-49) U/L Alkaline Phosphatase (38-126) U/L Creatine Kinase (55-170) U/L Troponin I <0.012 (0.000-0.034) ng/mL NT-Pro-B Natriuret Pep 4880 pg/mL Total Protein (6.3-8.2) g/dL Albumin (3.5-5.0) g/dL Influenza Type A RNA (Not Detectd) Influenza Type B (PCR) (Not Detectd) 06/25/19 Range/Units 14:35 WBC (3.8-10.6) k/uL RBC (4.30-5.90) m/uL Hgb (13.0-17.5) gm/dL Hct (39.0-53.0) % MCV (80.0-100.0) fL MCH (25.0-35.0) pg MCHC (31.0-37.0) g/dL RDW (11.5-15.5) % Plt Count (150-450) k/uL Neutrophils % % Lymphocytes % % Monocytes % % Eosinophils % % Basophils % % Neutrophils # (1.3-7.7) k/uL Lymphocytes # (1.0-4.8) k/uL Monocytes # (0-1.0) k/uL Eosinophils # (0-0.7) k/uL Basophils # (0-0.2) k/uL Hypochromasia PT (9.0-12.0) sec INR (<1.2) APTT (22.0-30.0) sec Sodium (137-145) mmol/L Potassium (3.5-5.1) mmol/L Chloride (98-107) mmol/L Carbon Dioxide (22-30) mmol/L Anion Gap mmol/L BUN (9-20) mg/dL Creatinine (0.66-1.25) mg/dL Est GFR (CKD-EPI)AfAm (>60 ml/min/1.73 sqM) Est GFR (CKD-EPI)NonAf (>60 ml/min/1.73 sqM) Glucose (74-99) mg/dL Plasma Lactic Acid Juaquin 1.4 (0.7-2.0) mmol/L Calcium (8.4-10.2) mg/dL Total Bilirubin (0.2-1.3) mg/dL AST (17-59) U/L ALT (4-49) U/L Alkaline Phosphatase (38-126) U/L Creatine Kinase (55-170) U/L Troponin I (0.000-0.034) ng/mL NT-Pro-B Natriuret Pep pg/mL Total Protein (6.3-8.2) g/dL Albumin (3.5-5.0) g/dL Influenza Type A RNA (Not Detectd) Influenza Type B (PCR) (Not Detectd) - Radiology Data Radiology results: image reviewed (Chest x-ray concerning for multifocal pneumonia) Critical Care Time Critical Care Time: Yes Total Critical Care Time: 33 Disposition Clinical Impression: Acute renal failure, Multifocal pneumonia, Sepsis Disposition: ADMITTED IP TO THIS [facility] Condition: Serious Is patient prescribed a controlled substance at d/c from ED?: No Referrals: Ricardo Stack MD [Primary Care Provider] - 1-2 days Decision Time: 15:48
[2019-06-25 14:50] LABS: Basophils # (A) 0.1 k/uL (0-0.2); Basophils % (A) 0 %; Eosinophils % (A) 0 %; HCT 27.4 % (39.0-53.0); HGB 8.6 gm/dL (13.0-17.5); Hypochromasia Slight; Lymphocytes # (A) 0.2 k/uL (1.0-4.8); Lymphocytes % (A) 1 %; MCH 29.5 pg (25.0-35.0); MCHC 31.3 g/dL (31.0-37.0); MCV 94.3 fL (80.0-100.0); Mean Platelet Volume 8.7; Monocytes # (A) 0.4 k/uL (0-1.0); Monocytes % (A) 2 %; Neutrophils # (A) 17.3 k/uL (1.3-7.7); Neutrophils % (A) 96 %; Platelet Count 148 k/uL (150-450); RBC 2.91 m/uL (4.30-5.90); RDW 15.8 % (11.5-15.5)
[2019-06-25 14:55] LABS: Albumin 3.3 g/dL (3.5-5.0); Calcium 8.5 mg/dL (8.4-10.2); Potassium 5.6 mmol/L (3.5-5.1); Total Bilirubin 1.6 mg/dL (0.2-1.3); Total Protein 6.5 g/dL (6.3-8.2)
[2019-06-25 15:08] LABS: INR 1.1 (<1.2); Partial Thromboplastin Time 26.7 sec (22.0-30.0); Prothrombin Time 11.6 sec (9.0-12.0)
--- NOTE | 2019-06-25 15:37 | XR ---
EXAMINATION TYPE: XR chest 2V DATE OF EXAM: 06/25/2019 COMPARISON: 04/07/2018 HISTORY: Increasing shortness of breath TECHNIQUE: Frontal and lateral views of the chest are obtained. FINDINGS: There are new multifocal opacities in the right upper lobe, right lower lobe in retrocardi ac airspace. Cardiomediastinal silhouette is stable. Thoracic spinal nerve root stimulator and postsu rgical change of the cervical spine are again noted. No acute osseous pathology. IMPRESSION: New multifocal opacities involving the right upper lobe, right lower lobe and left lower lobe. Considering multifocal pneumonia. Alternatively confluent pulmonary edema is possible but less likely.
[2019-06-25] MEDS ORDERED: PNEUMONIA PROTOCOL UTILIZED 1 EACH MISC PO PRN (15:50)
[2019-06-25] MEDS ORDERED: LEVOFLOXACIN 750MG-D5W PMX 750 MG in DEXTROSE/WATER 1 150ML.BAG IVPB STA (15:50)
[2019-06-25] MEDS ORDERED: PIPERACILLIN-TAZOBACTAM 3.375 GM in SODIUM CHLORIDE 0.9% 100 ML IVPB STA (15:50)
[2019-06-25] MEDS ORDERED: IPRATROPIUM-ALBUTEROL 3 ML NEB INHALATION PRN (15:50)
[2019-06-25] MEDS ORDERED: SODIUM CHLORIDE 0.9% 1,000 ML IV STA (15:53)
--- NOTE | 2019-06-25 16:51 | US ---
EXAMINATION TYPE: US kidneys/renal and bladder DATE OF EXAM: 06/25/2019 COMPARISON: CT lumbar 04/20/2019 CLINICAL HISTORY: arf. EXAM MEASUREMENTS: Right Kidney: 11.4 x 5.3 x 5.7 cm Left Kidney: 10.3 x 5.7 x 5.6 cm Right Kidney: At least two shadowing stones seen, mild hydro. Left Kidney: At least two shadowing stones seen, mild hydro. Bladder: not well distended, wall appears thickened. there is free fluid noted in pelvis near bladder . Bilateral Jets seen: No There is no ascites Kidneys show normal cortical medullary differentiation. IMPRESSION: Bilateral nephrolithiasis. Mild hydronephrosis bilaterally.
[2019-06-25 17:19] LABS: Appearance,Urine Cloudy (Clear); Bilirubin,Urine Negative (Negative); Blood,Urine Moderate (Negative); Color,Urine Yellow; Glucose,Urine (UA) Negative (Negative); Ketones,Urine Negative (Negative); Leukocyte Esterase,Urine Large (Negative); Mucus,Urine Rare /hpf; Nitrite,Urine Negative (Negative); PH, Urine 5.5 (5.0-8.0); Protein,Urine 1+ (Negative); RBC,Urine 35 /hpf (0-5); Specific Gravity,Urine 1.018 (1.001-1.035); Squamous Epithelial Cell,Urine 2 /hpf (0-4); Urobilinogen,Urine <2.0 mg/dL (<2.0); WBC,Urine 66 /hpf (0-5)
[2019-06-25] MEDS: IPRATROPIUM-ALBUTEROL 3 ML NEB INHALATION SCH ×2 (17:30→19:32)
[2019-06-26 00:01] LABS: Glucose,Whole Blood 201 mg/dL (75-99)
[2019-06-26] MEDS ORDERED: NALOXONE 0.4 MG/ML 1 ML VIAL IV PRN (00:39)
[2019-06-26] MEDS: FUROSEMIDE 10 MG/ML 10 ML VIAL IV SCH ×3 (01:03→17:10)
[2019-06-26 01:22] LABS: ABG Base Excess -13.1 mmol/L; ABG HCO3 14 mmol/L (21-25); ABG Oxygen Saturation 93.2 % (94-97); ABG PCO2 31 mmHg (35-45); ABG PH 7.26 (7.35-7.45); ABG PO2 77 mmHg (83-108); ABG TCO2 15 mmol/L (19-24); Allen Test Performed? Yes
[2019-06-26] MEDS: SODIUM CHLORIDE 0.9% 1,000 ML IV SCH ×3 (03:45→08:49)
[2019-06-26 05:56] LABS: Basophils # (A) 0.1 k/uL (0-0.2); Basophils % (A) 1 %; Eosinophils % (A) 0 %; HCT 25.2 % (39.0-53.0); HGB 7.8 gm/dL (13.0-17.5); Hypochromasia Slight; Lymphocytes # (A) 0.1 k/uL (1.0-4.8); Lymphocytes % (A) 1 %; MCH 29.3 pg (25.0-35.0); MCV 94.3 fL (80.0-100.0); Mean Platelet Volume 8.7; Monocytes # (A) 0.3 k/uL (0-1.0); Monocytes % (A) 2 %; Neutrophils # (A) 15.4 k/uL (1.3-7.7); Neutrophils % (A) 97 %; Platelet Count 138 k/uL (150-450); RBC 2.67 m/uL (4.30-5.90)
[2019-06-26 06:13] LABS: Calcium 8.6 mg/dL (8.4-10.2); Magnesium 1.8 mg/dL (1.6-2.3); Phosphorus 8.5 mg/dL (2.5-4.5)
[2019-06-26 06:20] LABS: Potassium 6.3 mmol/L (3.5-5.1)
[2019-06-26] MEDS ORDERED: SODIUM POLYSTYRENE SULFONATE 30 GM/120 ML BOTTLE RECTAL STA (06:26)
[2019-06-26 06:59] LABS: Glucose,Whole Blood 126 mg/dL (75-99)
[2019-06-26] MEDS: IPRATROPIUM-ALBUTEROL 3 ML NEB INHALATION SCH ×4 (07:54→20:20)
[2019-06-26] MEDS ORDERED: DEXTROSE 10 % IN WATER 250 ML IV STA (08:03)
--- NOTE | 2019-06-26 08:08 | XR ---
EXAMINATION TYPE: XR chest 1V DATE OF EXAM: 06/26/2019 COMPARISON: Prior chest x-ray 06/25/2019 HISTORY: Shortness of breath TECHNIQUE: Single frontal view of the chest is obtained. FINDINGS: Extensive bilateral airspace disease is present. Cord stimulator is overlying the upper th oracic cord, postop changes are noted at the cervicothoracic junction level. No evident pneumothorax. Heart is obscured but thought likely to be stable. There are overlying cardiac leads. Gas distended loops of bowel suspected within the abdomen. IMPRESSION: Correlate for pneumonia, congestive heart failure. Follow-up recommended.
[2019-06-26] MEDS ORDERED: INSULIN REGULAR 100 UNIT/ML VIAL IV ONE (08:15)
[2019-06-26 08:27] LABS: Glucose,Whole Blood 154 mg/dL (75-99)
[2019-06-26] MEDS ORDERED: FAMOTIDINE 20 MG/2 ML VIAL IV SCH (09:00)
[2019-06-26] MEDS ORDERED: PRIMIDONE 50 MG TAB PO PRN (09:41)
[2019-06-26] MEDS: oxyCODONE-APAP 10-325MG 1 EACH TAB PO PRN ×2 (10:03→18:18)
[2019-06-26] MEDS: DEXTROSE 5% IN WATER 1,000 ML with SODIUM BICARB (1 MEQ/ML) 150 ML IV SCH ×2 (11:03→21:30)
[2019-06-26] MEDS ORDERED: PIPERACILLIN-TAZOBACTAM 3.375 GM in SODIUM CHLORIDE 0.9% 100 ML IVPB SCH ×3 (12:00)
[2019-06-26] MEDS: ASCORBIC ACID 500 MG TAB PO SCH (13:09)
[2019-06-26] MEDS: CHOLECALCIFEROL 1,000 UNIT TAB PO SCH (13:09)
--- NOTE | 2019-06-26 13:21 | CT ---
EXAMINATION TYPE: CT abdomen pelvis wo con DATE OF EXAM: 06/26/2019 COMPARISON: 02/22/2017 HISTORY: Patient poor historian, CT DLP: 719.8 mGycm Examination of the solid and hollow viscera is limited given the lack of contrast. FINDINGS: LUNG BASES: Severe bilateral infiltrates noted with air bronchograms and associated groundglass infil trate. Small left greater than right pleural effusions seen. Correlate for pneumonia or aspiration pn eumonia. LIVER/GB: The gallbladder is unremarkable. No space-occupying hepatic lesion. PANCREAS: No pancreatic mass identified. No inflammatory process seen. SPLEEN: No evidence for splenomegaly. No intrasplenic lesions seen. ADRENALS: No adrenal nodules identified. No evidence for thickening. KIDNEYS: Patel balloon catheter is within the urinary bladder. There is bilateral nephrolithiasis. Pr oximal right ureteral calculus measures 7 mm. Examination is limited by extensive streak artifact fro m a lumbar metallic hardware. There is mild right-sided hydronephrosis seen. There is also mild left- sided hydronephrosis identified no definite obstructing calculus is seen. BOWEL: Appendix has a normal appearance. No evidence of bowel obstruction. No inflammatory process. Lymph nodes: No evidence for adenopathy greater than 1 cm. Abdominal aorta: Atheromatous changes seen. No evidence for aneurysm. Genital organs: No significant abnormality. Other: Small amount of fluid seen within the pelvis. IMPRESSION: 1. Mild bilateral hydronephrosis and bilateral nephrolithiasis. There appears to be a proximal right ureteral calculus measuring 7 mm. As noted streak artifact limits evaluation. 2. Correlate for underlying pneumonia or aspiration pneumonia. Correlate clinically and follow-up unt il resolution is advised.
[2019-06-26] MEDS ORDERED: hydrALAZINE HCL 20 MG/ML 1 ML VIAL IVP PRN (14:30)
[2019-06-26 14:44] VITALS: BMI 21.5
[2019-06-26] MEDS ORDERED: oxyCODONE-APAP 10-325MG 1 EACH TAB PO SCH (16:00)
--- NOTE | 2019-06-26 16:36 | P.GSCN ---
History of Present Illness Consult date: 06/26/19 Reason for Consult: Bilateral hydronephrosis History of present illness: Mr Griggs is a 68-year-old male was admitted to the ED with shortness of breath that is associated with a cough. Of note he does have COPD. On presentation he was noted to have his creat elevated to 10.88 from a baseline of 1.0. He denies any urinary symptoms or any flank pain. He underwent a CT which demonstrated bilateral mild hydronephrosis, evaluation was very limited secondary to artifact from hardware in his back. There is a possibility of a 7 mm right proximal stone. The patient was having low urine output on presentation. But his urine output has improved over the last few hours Review of Systems - Constitutional Denies chills, Denies fever - Respiratory Reports cough, Reports dyspnea - Gastrointestinal Denies abdominal pain, Denies nausea, Denies vomiting - Genitourinary Denies dysuria, Denies flank pain, Denies hematuria - Psychiatric Denies anxiety, Denies confusion - Endocrine Denies fatigue Past Medical History Past Medical History: Asthma, Cancer, COPD, Dementia, Pneumonia, Prostate Disorder, Thyroid Disorder Additional Past Medical History / Comment(s): meineires, uti/sepsis in , lung fungus w/scarring, also in past had work injury where he inhaled some sort of toxic gas. back pain. 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 chronic back and neck pain, celiac disease, scoliosis, unsteady gait History of Any Multi-Drug Resistant Organisms: None Reported Past Surgical History: Back Surgery, Orthopedic Surgery, Tonsillectomy Additional Past Surgical History / Comment(s): ear, prostate sx(turp). shoulder. 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 lumbar fusion, cervical fusion, lumbar stimulator. trigger finger, rt wrist, nose. lung fungus with scarring in past. prostate surgery about a month ago,. neck injection for pain in past Past Anesthesia/Blood Transfusion Reactions: Motion Sickness Past Psychological History: Depression Additional Psychological History / Comment(s): pt lives at home with his halley, uses a cane when up denies any recent falls. 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 Smoking Status: Former smoker Past Alcohol Use History: None Reported Additional Past Alcohol Use History / Comment(s): used to smoke a pipe/cigars and occ chew tobacco but quit 1989 Past Drug Use History: None Reported - Past Family History Mother Additional Family Medical History / Comment(s): parkinson Father Family Medical History: CVA/TIA Medications and Allergies Home Medications Medication Instructions Recorded Confirmed Type Donepezil [Aricept] 10 mg PO BID 03/04/15 06/25/19 History Lansoprazole 30 mg PO DAILY 03/04/15 06/25/19 History Levothyroxine Sodium [Synthroid] 75 mcg PO DAILY 03/04/15 06/25/19 History Montelukast [Singulair] 10 mg PO HS 03/04/15 06/25/19 History Multivitamins, Thera [Theragran] 1 tab PO DAILY 03/04/15 06/25/19 History fentaNYL [Duragesic 100MCG/HR] 100 mcg TRANSDERM Q48H 03/04/15 06/25/19 History Primidone [Mysoline] 50 mg PO DAILY PRN 06/19/15 06/25/19 History Ascorbic Acid [Vitamin C] 500 mg PO W/LUNCH 09/22/16 06/25/19 History Fexofenadine HCl 180 mg PO DAILY 09/22/16 06/25/19 History Vitamin E (Dl,Tocopheryl Acet) 400 unit PO HS 09/22/16 06/25/19 History [Vitamin E] ALPRAZolam [Xanax] 0.5 mg PO TID PRN 04/07/18 06/25/19 History Aspirin EC [Ecotrin Low Dose] 81 mg PO HS 04/07/18 06/25/19 History DULoxetine HCL [Cymbalta] 20 mg PO DAILY 04/07/18 06/25/19 History Diltiazem HCl 60 mg PO BID 04/07/18 06/25/19 History Doxazosin [Cardura] 4 mg PO HS 04/07/18 06/25/19 History Eszopiclone [Lunesta] 3 mg PO HS 04/07/18 06/25/19 History Memantine [Namenda] 10 mg PO BID 04/07/18 06/25/19 History oxyCODONE HCL/ACETAMINOPHEN 1 tab PO TID 04/07/18 06/25/19 History [Percocet 10-325 mg] Furosemide [Lasix] 20 mg PO DAILY 04/11/19 06/25/19 History Cholecalciferol [Vitamin D3 (25 2,000 unit PO W/LUNCH 06/25/19 06/25/19 History Mcg = 1000 Iu)] Clobetasol Propionate [Temovate 1 applic TOPICAL DAILY 06/25/19 06/25/19 History 0.05% Cream] Naproxen Sodium [Aleve] 220 mg PO BID 06/25/19 06/25/19 History Phytonadione [Vitamin K] 5 mg PO HS 06/25/19 06/25/19 History Potassium Chloride [Klor-Con 20] 20 meq PO HS 06/25/19 06/25/19 History Testosterone Cypionate 200 mg IM Q28D 06/25/19 06/25/19 History [Depo-Testosterone] Thiamine HCl [Vitamin B-1] 100 mg PO DAILY 06/25/19 06/25/19 History Topiramate [Topamax] 100 mg PO BID 06/25/19 06/25/19 History predniSONE See Taper PO DAILY 06/25/19 06/25/19 History Allergies Allergy/AdvReac Type Severity Reaction Status Date / Time celecoxib Allergy Unknown Verified 06/25/19 17:14 gluten Allergy Rash/Hives Verified 06/25/19 17:14 milk Allergy Unknown Verified 06/25/19 17:14 morphine Allergy Rash/Hives Verified 06/25/19 17:14 omeprazole Allergy Rapid Verified 06/25/19 17:14 Heart Rate Surgical - Exam Vital Signs Temp Pulse Resp BP Pulse Ox 97.8 F 116 H 20 147/68 80 L 06/25/19 13:57 06/25/19 13:57 06/25/19 13:57 06/25/19 13:57 06/25/19 13:57 - General well developed, well nourished, moderate distress, no pain - Respiratory other (Labored breathing ) - Abdomen Abdomen: soft, non tender, no rigid, no rebound, no distended - Psychiatric oriented to time, oriented to person, oriented to place Results - Labs 06/26/19 05:03 06/26/19 10:41 Abnormal Lab Results - Last 24 Hours (Table) 06/25/19 06/26/19 06/26/19 Range/Units 17:00 00:00 01:20 WBC (3.8-10.6) k/uL RBC (4.30-5.90) m/uL Hgb (13.0-17.5) gm/dL Hct (39.0-53.0) % RDW (11.5-15.5) % Plt Count (150-450) k/uL Neutrophils # (1.3-7.7) k/uL Lymphocytes # (1.0-4.8) k/uL ABG pH 7.26 L (7.35-7.45) ABG pCO2 31 L (35-45) mmHg ABG pO2 77 L (83-108) mmHg ABG HCO3 14 L (21-25) mmol/L ABG Total CO2 15 L (19-24) mmol/L ABG O2 Saturation 93.2 L (94-97) % Potassium (3.5-5.1) mmol/L Chloride (98-107) mmol/L Carbon Dioxide (22-30) mmol/L BUN (9-20) mg/dL Creatinine (0.66-1.25) mg/dL Glucose (74-99) mg/dL POC Glucose (mg/dL) 201 H (75-99) mg/dL Phosphorus (2.5-4.5) mg/dL Urine Protein 1+ H (Negative) Urine Blood Moderate H (Negative) Ur Leukocyte Esterase Large H (Negative) Urine RBC 35 H (0-5) /hpf Urine WBC 66 H (0-5) /hpf Urine WBC Clumps Many H (None) /hpf Urine Mucus Rare H (None) /hpf 06/26/19 06/26/19 06/26/19 Range/Units 05:03 05:03 06:57 WBC 16.0 H (3.8-10.6) k/uL RBC 2.67 L (4.30-5.90) m/uL Hgb 7.8 L (13.0-17.5) gm/dL Hct 25.2 L (39.0-53.0) % RDW 16.0 H (11.5-15.5) % Plt Count 138 L (150-450) k/uL Neutrophils # 15.4 H (1.3-7.7) k/uL Lymphocytes # 0.1 L (1.0-4.8) k/uL ABG pH (7.35-7.45) ABG pCO2 (35-45) mmHg ABG pO2 (83-108) mmHg ABG HCO3 (21-25) mmol/L ABG Total CO2 (19-24) mmol/L ABG O2 Saturation (94-97) % Potassium 6.3 H* (3.5-5.1) mmol/L Chloride 112 H (98-107) mmol/L Carbon Dioxide 14 L (22-30) mmol/L BUN 79 H (9-20) mg/dL Creatinine 10.22 H* (0.66-1.25) mg/dL Glucose 112 H (74-99) mg/dL POC Glucose (mg/dL) 126 H (75-99) mg/dL Phosphorus 8.5 H (2.5-4.5) mg/dL Urine Protein (Negative) Urine Blood (Negative) Ur Leukocyte Esterase (Negative) Urine RBC (0-5) /hpf Urine WBC (0-5) /hpf Urine WBC Clumps (None) /hpf Urine Mucus (None) /hpf 06/26/19 06/26/19 Range/Units 08:26 10:41 WBC (3.8-10.6) k/uL RBC (4.30-5.90) m/uL Hgb (13.0-17.5) gm/dL Hct (39.0-53.0) % RDW (11.5-15.5) % Plt Count (150-450) k/uL Neutrophils # (1.3-7.7) k/uL Lymphocytes # (1.0-4.8) k/uL ABG pH (7.35-7.45) ABG pCO2 (35-45) mmHg ABG pO2 (83-108) mmHg ABG HCO3 (21-25) mmol/L ABG Total CO2 (19-24) mmol/L ABG O2 Saturation (94-97) % Potassium 5.9 H (3.5-5.1) mmol/L Chloride (98-107) mmol/L Carbon Dioxide (22-30) mmol/L BUN (9-20) mg/dL Creatinine (0.66-1.25) mg/dL Glucose (74-99) mg/dL POC Glucose (mg/dL) 154 H (75-99) mg/dL Phosphorus (2.5-4.5) mg/dL Urine Protein (Negative) Urine Blood (Negative) Ur Leukocyte Esterase (Negative) Urine RBC (0-5) /hpf Urine WBC (0-5) /hpf Urine WBC Clumps (None) /hpf Urine Mucus (None) /hpf Microbiology - Last 24 Hours (Table) 06/25/19 12:50 Blood Culture Gram Stain - Preliminary Blood 06/25/19 12:50 Blood Culture - Final Blood 06/25/19 17:00 Urine Culture - Preliminary Urine,Voided Diabetes panel 06/26/19 06/26/19 Range/Units 05:03 10:41 Sodium 139 (137-145) mmol/L Potassium 6.3 H* 5.9 H (3.5-5.1) mmol/L Chloride 112 H (98-107) mmol/L Carbon Dioxide 14 L (22-30) mmol/L BUN 79 H (9-20) mg/dL Creatinine 10.22 H* (0.66-1.25) mg/dL Glucose 112 H (74-99) mg/dL Calcium 8.6 (8.4-10.2) mg/dL Calcium panel 06/26/19 Range/Units 05:03 Calcium 8.6 (8.4-10.2) mg/dL Phosphorus 8.5 H (2.5-4.5) mg/dL Pituitary panel 06/26/19 06/26/19 Range/Units 05:03 10:41 Sodium 139 (137-145) mmol/L Potassium 6.3 H* 5.9 H (3.5-5.1) mmol/L Chloride 112 H (98-107) mmol/L Carbon Dioxide 14 L (22-30) mmol/L BUN 79 H (9-20) mg/dL Creatinine 10.22 H* (0.66-1.25) mg/dL Glucose 112 H (74-99) mg/dL Calcium 8.6 (8.4-10.2) mg/dL Adrenal panel 06/26/19 06/26/19 Range/Units 05:03 10:41 Sodium 139 (137-145) mmol/L Potassium 6.3 H* 5.9 H (3.5-5.1) mmol/L Chloride 112 H (98-107) mmol/L Carbon Dioxide 14 L (22-30) mmol/L BUN 79 H (9-20) mg/dL Creatinine 10.22 H* (0.66-1.25) mg/dL Glucose 112 H (74-99) mg/dL Calcium 8.6 (8.4-10.2) mg/dL - Imaging CT scan - abdomen: image reviewed (CC the vitreous bilateral mild hydronephrosis. Difficult to assess for ureteral stones given the hardware in his back. Is a potential 7 mm right proximal stone) Assessment and Plan Assessment: 78-year-old male admitted to the hospital with pneumonia and dyspnea. He was also noted to have acute kidney injury with creatinine of 10.88 from a baseline of 1.[address] that demonstrated bilateral mild hydronephrosis, evaluation of the ureter is limited secondary to hardware in his back, there is a potential 7 mm proximal ureteral stone Plan: -Will continue to trend creat and urine output -NPO past MN, if creat fails to trend down will plan on going the OR tomorrow for bilateral RPG and possible ureteral stent placement
[2019-06-26] MEDS: PIPERACILLIN-TAZOBACTAM 3.375 GM in SODIUM CHLORIDE 0.9% 100 ML IVPB SCH (16:46)
--- NOTE | 2019-06-26 16:49 | P.HPIM ---
History of Present Illness H&P Date: 06/26/19 Chief Complaint: Worsening shortness of breath. This is a history and physical on a 68-year-old white male who has been complaining of worsening shortness of breath. Evaluation in ER showed significant multifocal and bilateral pneumonia with acute renal failure. He has underlying history of NIDDM and element of Asthma. He was stabilized in the ER but as the day progressed, he needed significant element of BiPAP and was transferred to the ICU. Review of Systems Constitutional: Reports fatigue, Reports weakness Eyes: denies blurred vision, denies pain Ears, nose, mouth and throat: Denies headache, Denies sore throat Cardiovascular: Denies chest pain, Denies shortness of breath Respiratory: Reports cough, Reports hemoptysis, Reports pleurisy Gastrointestinal: Denies abdominal pain, Denies diarrhea, Denies nausea, Denies vomiting Musculoskeletal: Denies myalgias Integumentary: Denies pruritus, Denies rash Neurological: Denies numbness, Denies weakness Past Medical History Past Medical History: Asthma, Cancer, COPD, Dementia, Pneumonia, Prostate Disorder, Thyroid Disorder Additional Past Medical History / Comment(s): meineires, uti/sepsis in , lung fungus w/scarring, also in past had work injury where he inhaled some sort of toxic gas. back pain. 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 chronic back and neck pain, celiac disease, scoliosis, unsteady gait History of Any Multi-Drug Resistant Organisms: None Reported Past Surgical History: Back Surgery, Orthopedic Surgery, Tonsillectomy Additional Past Surgical History / Comment(s): ear, prostate sx(turp). shoulder. 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 lumbar fusion, cervical fusion, lumbar stimulator. trigger finger, rt wrist, nose. lung fungus with scarring in past. prostate surgery about a month ago,. neck injection for pain in past Past Anesthesia/Blood Transfusion Reactions: Motion Sickness Past Psychological History: Depression Additional Psychological History / Comment(s): pt lives at home with his halley, uses a cane when up denies any recent falls. 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 Smoking Status: Former smoker Past Alcohol Use History: None Reported Additional Past Alcohol Use History / Comment(s): used to smoke a pipe/cigars and occ chew tobacco but quit 1989 Past Drug Use History: None Reported - Past Family History Mother Additional Family Medical History / Comment(s): parkinson Father Family Medical History: CVA/TIA Medications and Allergies Home Medications Medication Instructions Recorded Confirmed Type Donepezil [Aricept] 10 mg PO BID 03/04/15 06/25/19 History Lansoprazole 30 mg PO DAILY 03/04/15 06/25/19 History Levothyroxine Sodium [Synthroid] 75 mcg PO DAILY 03/04/15 06/25/19 History Montelukast [Singulair] 10 mg PO HS 03/04/15 06/25/19 History Multivitamins, Thera [Theragran] 1 tab PO DAILY 03/04/15 06/25/19 History fentaNYL [Duragesic 100MCG/HR] 100 mcg TRANSDERM Q48H 03/04/15 06/25/19 History Primidone [Mysoline] 50 mg PO DAILY PRN 06/19/15 06/25/19 History Ascorbic Acid [Vitamin C] 500 mg PO W/LUNCH 09/22/16 06/25/19 History Fexofenadine HCl 180 mg PO DAILY 09/22/16 06/25/19 History Vitamin E (Dl,Tocopheryl Acet) 400 unit PO HS 09/22/16 06/25/19 History [Vitamin E] ALPRAZolam [Xanax] 0.5 mg PO TID PRN 04/07/18 06/25/19 History Aspirin EC [Ecotrin Low Dose] 81 mg PO HS 04/07/18 06/25/19 History DULoxetine HCL [Cymbalta] 20 mg PO DAILY 04/07/18 06/25/19 History Diltiazem HCl 60 mg PO BID 04/07/18 06/25/19 History Doxazosin [Cardura] 4 mg PO HS 04/07/18 06/25/19 History Eszopiclone [Lunesta] 3 mg PO HS 04/07/18 06/25/19 History Memantine [Namenda] 10 mg PO BID 04/07/18 06/25/19 History oxyCODONE HCL/ACETAMINOPHEN 1 tab PO TID 04/07/18 06/25/19 History [Percocet 10-325 mg] Furosemide [Lasix] 20 mg PO DAILY 04/11/19 06/25/19 History Cholecalciferol [Vitamin D3 (25 2,000 unit PO W/LUNCH 06/25/19 06/25/19 History Mcg = 1000 Iu)] Clobetasol Propionate [Temovate 1 applic TOPICAL DAILY 06/25/19 06/25/19 History 0.05% Cream] Naproxen Sodium [Aleve] 220 mg PO BID 06/25/19 06/25/19 History Phytonadione [Vitamin K] 5 mg PO HS 06/25/19 06/25/19 History Potassium Chloride [Klor-Con 20] 20 meq PO HS 06/25/19 06/25/19 History Testosterone Cypionate 200 mg IM Q28D 06/25/19 06/25/19 History [Depo-Testosterone] Thiamine HCl [Vitamin B-1] 100 mg PO DAILY 06/25/19 06/25/19 History Topiramate [Topamax] 100 mg PO BID 06/25/19 06/25/19 History predniSONE See Taper PO DAILY 06/25/19 06/25/19 History Allergies Allergy/AdvReac Type Severity Reaction Status Date / Time celecoxib Allergy Unknown Verified 06/25/19 17:14 gluten Allergy Rash/Hives Verified 06/25/19 17:14 milk Allergy Unknown Verified 06/25/19 17:14 morphine Allergy Rash/Hives Verified 06/25/19 17:14 omeprazole Allergy Rapid Verified 06/25/19 17:14 Heart Rate Physical Exam Vitals: Vital Signs Temp Pulse Pulse Resp BP Pulse Ox 06/26/19 16:08 93 06/26/19 16:00 92 15 149/75 98 06/26/19 15:59 89 06/26/19 15:00 95 14 150/79 98 06/26/19 14:30 102 H 16 167/84 100 06/26/19 14:00 110 H 21 155/81 97 06/26/19 13:00 93 12 153/75 98 06/26/19 12:00 93 21 146/86 97 06/26/19 11:35 97 06/26/19 11:00 97 13 164/91 96 06/26/19 10:00 104 H 21 148/126 97 06/26/19 09:00 113 H 17 155/87 97 06/26/19 08:10 99 06/26/19 08:00 99 21 158/81 96 06/26/19 07:00 102 H 21 132/72 95 06/26/19 06:30 101 H 22 132/72 98 06/26/19 06:00 73 14 148/80 97 06/26/19 05:30 87 16 148/80 97 06/26/19 05:00 90 16 151/77 98 06/26/19 04:30 90 20 151/77 98 06/26/19 04:00 98.0 F 90 17 143/83 98 06/26/19 03:00 80 14 160/100 97 06/26/19 02:30 89 17 160/100 97 06/26/19 02:00 107 H 23 154/81 96 06/26/19 01:30 91 18 173/81 94 L 06/26/19 01:00 97.6 F 89 22 165/84 96 06/26/19 00:30 112 H 21 165/84 95 06/26/19 00:00 97.6 F 98 22 165/84 100 06/25/19 23:02 81 16 150/72 93 L 06/25/19 21:32 80 20 137/66 90 L 06/25/19 21:05 91 16 140/67 90 L 06/25/19 19:56 97.9 F 109 H 22 159/73 91 L 06/25/19 19:51 106 H 06/25/19 19:33 100 06/25/19 19:00 26 H 77 L 06/25/19 18:10 94 20 149/66 93 L 06/25/19 17:41 92 06/25/19 17:30 94 06/25/19 16:58 97.5 F L 105 H 22 90 L Intake and Output 06/26/19 06/26/19 06/26/19 06:59 14:59 22:59 Intake Total 600 1000 240 Output Total 180 475 275 Balance 420 525 -35 Intake: IV 390 Sodium Chloride 0.9% 1, 390 000 ml @ 130 mls/hr IV . Q7H42M [facility] Rx#:[id number] Amount of Fluid Infused ( 500 ml) Intake, IV Titration 100 610 240 Amount Dextrose 10 % in Water 250 250 ml @ 999 mls/hr IV ONCE [facility] Rx#:[id number] Dextrose 5% in Water 1, 360 240 000 ml @ 120 mls/hr IV . Q9H35M [facility] with Sodium Bicarb (1 Meq/ml) 150 ml Rx#:[id number] Piperacillin-Tazobactam 3 100 .375 gm In Sodium Chloride 0.9% 100 ml @ 25 mls/hr IVPB Q8HR [facility] Rx# :[id number] Output: Urine 180 475 275 Other: Voiding Method Indwelling Catheter Indwelling Catheter # Bowel Movements 1 Weight 68.039 kg 68.039 kg - Constitutional General appearance: no acute distress - EENT Eyes: EOMI - Neck Neck: no lymphadenopathy - Respiratory Respiratory: bilateral: rhonchi - Cardiovascular Rhythm: regular Heart sounds: normal: S1, S2 Abnormal Heart Sounds: no S3 Gallop - Gastrointestinal General gastrointestinal: soft, no tenderness - Integumentary Integumentary: no cyanotic - Musculoskeletal Musculoskeletal: generalized weakness - Psychiatric Psychiatric: A&O x's 3 Results CBC & Chem 7: 06/26/19 05:03 06/26/19 10:41 Labs: Abnormal Lab Results - Last 24 Hours (Table) 06/25/19 06/26/19 06/26/19 Range/Units 17:00 00:00 01:20 WBC (3.8-10.6) k/uL RBC (4.30-5.90) m/uL Hgb (13.0-17.5) gm/dL Hct (39.0-53.0) % RDW (11.5-15.5) % Plt Count (150-450) k/uL Neutrophils # (1.3-7.7) k/uL Lymphocytes # (1.0-4.8) k/uL ABG pH 7.26 L (7.35-7.45) ABG pCO2 31 L (35-45) mmHg ABG pO2 77 L (83-108) mmHg ABG HCO3 14 L (21-25) mmol/L ABG Total CO2 15 L (19-24) mmol/L ABG O2 Saturation 93.2 L (94-97) % Potassium (3.5-5.1) mmol/L Chloride (98-107) mmol/L Carbon Dioxide (22-30) mmol/L BUN (9-20) mg/dL Creatinine (0.66-1.25) mg/dL Glucose (74-99) mg/dL POC Glucose (mg/dL) 201 H (75-99) mg/dL Phosphorus (2.5-4.5) mg/dL Urine Protein 1+ H (Negative) Urine Blood Moderate H (Negative) Ur Leukocyte Esterase Large H (Negative) Urine RBC 35 H (0-5) /hpf Urine WBC 66 H (0-5) /hpf Urine WBC Clumps Many H (None) /hpf Urine Mucus Rare H (None) /hpf 06/26/19 06/26/19 06/26/19 Range/Units 05:03 05:03 06:57 WBC 16.0 H (3.8-10.6) k/uL RBC 2.67 L (4.30-5.90) m/uL Hgb 7.8 L (13.0-17.5) gm/dL Hct 25.2 L (39.0-53.0) % RDW 16.0 H (11.5-15.5) % Plt Count 138 L (150-450) k/uL Neutrophils # 15.4 H (1.3-7.7) k/uL Lymphocytes # 0.1 L (1.0-4.8) k/uL ABG pH (7.35-7.45) ABG pCO2 (35-45) mmHg ABG pO2 (83-108) mmHg ABG HCO3 (21-25) mmol/L ABG Total CO2 (19-24) mmol/L ABG O2 Saturation (94-97) % Potassium 6.3 H* (3.5-5.1) mmol/L Chloride 112 H (98-107) mmol/L Carbon Dioxide 14 L (22-30) mmol/L BUN 79 H (9-20) mg/dL Creatinine 10.22 H* (0.66-1.25) mg/dL Glucose 112 H (74-99) mg/dL POC Glucose (mg/dL) 126 H (75-99) mg/dL Phosphorus 8.5 H (2.5-4.5) mg/dL Urine Protein (Negative) Urine Blood (Negative) Ur Leukocyte Esterase (Negative) Urine RBC (0-5) /hpf Urine WBC (0-5) /hpf Urine WBC Clumps (None) /hpf Urine Mucus (None) /hpf 01/28/20 01/28/20 Range/Units 08:26 10:41 WBC (3.8-10.6) k/uL RBC (4.30-5.90) m/uL Hgb (13.0-17.5) gm/dL Hct (39.0-53.0) % RDW (11.5-15.5) % Plt Count (150-450) k/uL Neutrophils # (1.3-7.7) k/uL Lymphocytes # (1.0-4.8) k/uL ABG pH (7.35-7.45) ABG pCO2 (35-45) mmHg ABG pO2 (83-108) mmHg ABG HCO3 (21-25) mmol/L ABG Total CO2 (19-24) mmol/L ABG O2 Saturation (94-97) % Potassium 5.9 H (3.5-5.1) mmol/L Chloride (98-107) mmol/L Carbon Dioxide (22-30) mmol/L BUN (9-20) mg/dL Creatinine (0.66-1.25) mg/dL Glucose (74-99) mg/dL POC Glucose (mg/dL) 154 H (75-99) mg/dL Phosphorus (2.5-4.5) mg/dL Urine Protein (Negative) Urine Blood (Negative) Ur Leukocyte Esterase (Negative) Urine RBC (0-5) /hpf Urine WBC (0-5) /hpf Urine WBC Clumps (None) /hpf Urine Mucus (None) /hpf Microbiology - Last 24 Hours (Table) 06/25/19 12:50 Blood Culture Gram Stain - Preliminary Blood 06/25/19 12:50 Blood Culture - Final Blood 06/25/19 17:00 Urine Culture - Preliminary Urine,Voided Thrombosis Risk Factor Assmnt - Choose All That Apply Each Factor Represents 1 point: Abnormal pulmonary function (COPD), Serious lung disease incl. pneumonia (< 1month), Swollen legs (current) Each Risk Factor Represents 2 Points: Age 61-74 years, Malignancy Thrombosis Risk Factor Assessment Total Risk Factor Score: 7 Thrombosis Risk Factor Assessment Level: High Risk Assessment and Plan (1) Sepsis Current Visit: Yes Status: Acute Code(s): A41.9 - SEPSIS, UNSPECIFIED ORG ANISM SNOMED Code(s): 15591383 (2) Community acquired bacterial pneumonia Current Visit: No Status: Acute Code(s): J15.9 - UNSPECIFIED BACTERIAL PNEUMONIA SNOMED Code(s): 752441470 (3) GERD (gastroesophageal reflux disease) Current Visit: No Status: Acute Code(s): K21.9 - GASTRO-ESOPHAGEAL REFLUX DISEASE WITHOUT ESOPHAGITIS SNOMED Code(s): 226482288 (4) Hyperpyrexia Current Visit: No Status: Acute Code(s): R50.9 - FEVER, UNSPECIFIED SNOMED Code(s): 520373611 (5) UTI (urinary tract infection) Current Visit: No Status: Acute Code(s): N39.0 - URINARY TRACT INFECTION, SITE NOT SPECIFIED SNOMED Code(s): 16805923 Plan: Appropriate community-acquired protocols . Check CBC and see me in the a.m. Multiple consultants including plasterer foreman and nephrology. Reconcile medications as necessary. Prognosis is guarded secondary to his multiple comorbidities. See orders otherwise.
[2019-06-26] MEDS ORDERED: LEVOFLOXACIN 750MG-D5W PMX 750 MG in DEXTROSE/WATER 1 150ML.BAG IVPB SCH (17:00)
[2019-06-26 17:38] LABS: Potassium 5.4 mmol/L (3.5-5.1)
[2019-06-26 17:39] LABS: Calcium 8.7 mg/dL (8.4-10.2)
[2019-06-26 18:19] LABS: Glucose,Whole Blood 134 mg/dL (75-99)
[2019-06-26] MEDS: MONTELUKAST 10 MG TAB PO SCH (20:07)
[2019-06-26] MEDS: TOPIRAMATE 100 MG TAB PO SCH (20:07)
[2019-06-26] MEDS: ASPIRIN 81 MG PO SCH (20:07)
[2019-06-26] MEDS: DILTIAZEM ORAL 60 MG TAB PO SCH (20:07)
[2019-06-26] MEDS: DOXAZOSIN 4 MG TAB PO SCH (20:08)
[2019-06-26] MEDS: MEMANTINE 10 MG TAB PO SCH (20:08)
[2019-06-26] MEDS: DONEPEZIL 10 MG TAB PO SCH (20:08)
[2019-06-26] MEDS ORDERED: POTASSIUM CHLORIDE ER 20 MEQ TAB.ER PO SCH (21:00)
--- NOTE | 2019-06-26 22:03 | CONS ---
CONSULTATION REASON FOR CONSULT: Renal failure. HISTORY OF PRESENT ILLNESS: The patient is a 68-year-old male who was admitted to the hospital with complaints of shortness of breath, increased weakness. Patient was noted to have a creatinine of 10.4 mg/dL. Previous creatinine was 0.9 on 04/07/2018. Patient was maintained on Naprosyn at home prior to admission. His urine output was low initially. However, it has picked up. He is currently maintained on IV Lasix. Patient's chest x-ray shows evidence of multifocal pneumonia versus pulmonary vascular congestion and pulmonary edema. There is no prior history of kidney diseases. Ultrasound of the abdomen showed bilateral nephrolithiasis and mild hydronephrosis bilaterally. The patient was also severely acidotic with a CO2 of 14, and initially 12 on admission. Patient's reports that he has had issues with his prostate previously and recently he has had difficulty passing urine with significant complaints of frequency. No abdominal pain. No fevers or chills, nausea, vomiting. Appetite has been low. PAST MEDICAL HISTORY: 1. Asthma. 2. COPD. 3. Dementia. 4. Pneumonia. 5. History of BPH. 6. Hypothyroidism. 7. Meniere's disease. 8. History of fungal lung infection. 9. History of tonsillar cancer, status post radiation therapy, chemotherapy. 10.Chronic back pain. 11.Celiac disease. 12.Scoliosis. PAST SURGICAL HISTORY: 1. Tonsillectomy. 2. Back surgery. 3. Cervical fusion. 4. Lumbar fusion. 5. Finger surgery. SOCIAL HISTORY: Positive for smoking. No history of drug abuse or alcohol abuse. MEDICATIONS: Medications at home prior to admission include: 1. Aricept. 2. Lansoprazole. 3. Synthroid. 4. Singulair. 5. Theragran. 6. Mysoline. 7. Vitamin C. 8. Xanax. 9. Cymbalta. 10.Aspirin. 11.Cardura. 12.Lunesta. 13.Namenda. 14.Lasix. 15.Aleve. 16.Potassium. 17.Depo-testosterone. 18.Topamax. 19.Prednisone. ALLERGIES: ALLERGIES Include CELEBREX, GLUTEN, MILK, MORPHINE, OMEPRAZOLE. PHYSICAL EXAMINATION: On examination, patient is currently comfortable. He is maintained on BiPAP. He is not in acute distress. Blood pressure this morning was 155/87, heart rate about 90 per minute. Patient is afebrile. EXAMINATION OF THE HEART: S1 and S2. EXAMINATION OF LUNGS: Decreased breath sounds at bases. ABDOMEN: Soft, non-tender. Examination of lower extremities shows no significant edema. BUTTONHOLE FACER exam is grossly intact. LABS: Sodium 139, potassium 6.3, chloride 112. CO2 is 14, BUN 79, creatinine 10.2, phosphorus 8.5, hemoglobin 7.8, white cell count 16. ASSESSMENT: 1. Acute kidney injury, most likely obstructive uropathy. We will consult Urology. The patient is also hypervolemic. He is currently being diuresed. If his renal function does not improve over the next few days, he will need to be dialyzed and we will proceed with urology consult as well. 2. Non-gap metabolic acidosis secondary to renal failure. Will start bicarb drip. 3. Hyperkalemia associated with acute kidney injury and possibly obstructive uropathy as well. Will treat with IV medications and repeat serum potassium later this evening. Expect improvement with improving urine output as well as treatment of acidosis. 4. Hyperphosphatemia associated with advanced renal failure. Will start phosphate binders. 5. Hypothyroidism. PLAN: Start bicarb drip. Continue with IV Lasix. Consult Urology. Repeat labs in a.m. Repeat potassium this evening. Treat potassium with dextrose and insulin. Thank you for this consultation. Will continue to follow the patient with you during his hospitalization. MMTISHL / ESTRELLITAN: [id number] /
[2019-06-27 00:27] LABS: Glucose,Whole Blood 139 mg/dL (75-99)
[2019-06-27] MEDS: FUROSEMIDE 10 MG/ML 10 ML VIAL IV SCH ×3 (00:42→15:23)
[2019-06-27] MEDS: oxyCODONE-APAP 10-325MG 1 EACH TAB PO PRN ×3 (02:08→19:03)
[2019-06-27] MEDS: ALPRAZolam 0.5 MG TAB PO PRN ×2 (02:09→15:42)
[2019-06-27] MEDS: PIPERACILLIN-TAZOBACTAM 3.375 GM in SODIUM CHLORIDE 0.9% 100 ML IVPB SCH ×2 (03:13→16:44)
[2019-06-27 05:57] LABS: Anisocytosis Slight; Basophils # (A) 0.2 k/uL (0-0.2); Basophils % (A) 1 %; Eosinophils % (A) 0 %; Lymphocytes # (A) 0.2 k/uL (1.0-4.8); Lymphocytes % (A) 1 %; MCH 29.9 pg (25.0-35.0); MCHC 32.5 g/dL (31.0-37.0); MCV 91.9 fL (80.0-100.0); Mean Platelet Volume 8.8; Monocytes # (A) 0.4 k/uL (0-1.0); Monocytes % (A) 3 %; Neutrophils # (A) 14.8 k/uL (1.3-7.7); Neutrophils % (A) 94 %; Platelet Count 159 k/uL (150-450); RBC 2.13 m/uL (4.30-5.90); RDW 16.1 % (11.5-15.5); WBC 15.7 k/uL (3.8-10.6)
[2019-06-27 06:05] LABS: HGB 6.4 gm/dL (13.0-17.5)
[2019-06-27 06:06] LABS: HCT 19.6 % (39.0-53.0)
[2019-06-27 06:21] LABS: Magnesium 1.9 mg/dL (1.6-2.3); Phosphorus 7.7 mg/dL (2.5-4.5); Potassium 4.7 mmol/L (3.5-5.1)
[2019-06-27 06:59] LABS: Glucose,Whole Blood 133 mg/dL (75-99)
[2019-06-27] MEDS: DEXTROSE 5% IN WATER 1,000 ML with SODIUM BICARB (1 MEQ/ML) 150 ML IV SCH (07:11)
--- NOTE | 2019-06-27 08:03 | XR ---
EXAMINATION TYPE: XR chest 1V portable DATE OF EXAM: 06/27/2019 COMPARISON: Prior chest x-ray 06/26/2019 HISTORY: Shortness of breath TECHNIQUE: Single frontal view of the chest is obtained. FINDINGS: Bilateral airspace disease shows a similar appearance. No pneumothorax or evident effusion . Heart is stable. Post procedural change is noted. There are overlying cardiac leads. IMPRESSION: There is not a significant change. Correlate for pneumonia.
[2019-06-27] MEDS: IPRATROPIUM-ALBUTEROL 3 ML NEB INHALATION SCH ×4 (08:15→18:59)
[2019-06-27] MEDS: DILTIAZEM ORAL 60 MG TAB PO SCH ×2 (08:47→20:55)
[2019-06-27] MEDS: LEVOTHYROXINE 75 MCG TAB PO SCH (08:47)
[2019-06-27] MEDS: PANTOPRAZOLE 40 MG TABLET PO SCH ×2 (08:47→09:08)
[2019-06-27] MEDS: THIAMINE 100 MG TAB PO SCH ×2 (08:47→09:12)
[2019-06-27] MEDS: TOPIRAMATE 100 MG TAB PO SCH ×3 (08:47→20:55)
[2019-06-27] MEDS: DONEPEZIL 10 MG TAB PO SCH ×3 (08:48→20:55)
[2019-06-27] MEDS: LORATADINE 10 MG TAB PO SCH ×2 (08:48→09:08)
[2019-06-27] MEDS: DULoxetine HCL 20 MG CAPSULE.DR PO SCH ×2 (08:48→09:08)
[2019-06-27] MEDS: MULTIVITAMINS, THERA 1 EACH TAB PO SCH ×2 (08:48→09:08)
[2019-06-27] MEDS: CLOBETASOL PROP 0.05% CR 15GM TOPICAL SCH (08:48)
[2019-06-27] MEDS ORDERED: FUROSEMIDE 20 MG TAB PO SCH (09:00)
[2019-06-27] MEDS: MEMANTINE 10 MG TAB PO SCH ×2 (09:06→20:55)
--- NOTE | 2019-06-27 11:37 | P.CNPUL ---
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 Guerrero locally for brain metastasis, patient also get cancer care out of town, he also follows up with urology locally for urinary problem issues he started having increasing shortness of breath which was progressive in nature occasional cough is present but started feeling weak also has increased swelling of the lower extremity, patient came into the hospital for further evaluation found to be in acute renal failure workup and evaluation revealed bilateral hydronephrosis along with renal calculi patient is admitted into the hospital for further workup and evaluation, his white cell count is 18,000, gram-negative rods growing in the blood, hemoglobin is 8.6, he has severe metabolic acidosis along with hyperkalemia and his BUN/creatinine was 73 and 10.4, patient will gradually have been hydrated also on Lasix at the same time, urology has been consulted for possible stent placement for obstructive uropathy, patient would like to be DO NOT RESUSCITATE, Review of Systems All systems: negative Past Medical History Past Medical History: Asthma, Cancer, COPD, Dementia, Pneumonia, Prostate Disorder, Thyroid Disorder Additional Past Medical History / Comment(s): meineires, uti/sepsis in , lung fungus w/scarring, also in past had work injury where he inhaled some sort of toxic gas. back pain. Tonsil CA with lymph involvement 2009 radation and chemo. chronic back and neck pain, celiac disease, scoliosis, unsteady gait History of Any Multi-Drug Resistant Organisms: None Reported Past Surgical History: Back Surgery, Orthopedic Surgery, Tonsillectomy Additional Past Surgical History / Comment(s): ear, prostate sx(turp). shoulder. 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 lumbar fusion, cervical fusion, lumbar stimulator. trigger finger, rt wrist, nose. lung fungus with scarring in past. prostate surgery about a month ago,. neck injection for pain in past Past Anesthesia/Blood Transfusion Reactions: Motion Sickness Past Psychological History: Depression Additional Psychological History / Comment(s): pt lives at home with his halley, uses a cane when up denies any recent falls. 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 Smoking Status: Former smoker Past Alcohol Use History: None Reported Additional Past Alcohol Use History / Comment(s): used to smoke a pipe/cigars and occ chew tobacco but quit 1989 Past Drug Use History: None Reported - Past Family History Mother Additional Family Medical History / Comment(s): parkinson Father Family Medical History: CVA/TIA Medications and Allergies Home Medications Medication Instructions Recorded Confirmed Type Donepezil [Aricept] 10 mg PO BID 03/04/15 06/25/19 History Lansoprazole 30 mg PO DAILY 03/04/15 06/25/19 History Levothyroxine Sodium [Synthroid] 75 mcg PO DAILY 03/04/15 06/25/19 History Montelukast [Singulair] 10 mg PO HS 03/04/15 06/25/19 History Multivitamins, Thera [Theragran] 1 tab PO DAILY 03/04/15 06/25/19 History fentaNYL [Duragesic 100MCG/HR] 100 mcg TRANSDERM Q48H 03/04/15 06/25/19 History Primidone [Mysoline] 50 mg PO DAILY PRN 06/19/15 06/25/19 History Ascorbic Acid [Vitamin C] 500 mg PO W/LUNCH 09/22/16 06/25/19 History Fexofenadine HCl 180 mg PO DAILY 09/22/16 06/25/19 History Vitamin E (Dl,Tocopheryl Acet) 400 unit PO HS 09/22/16 06/25/19 History [Vitamin E] ALPRAZolam [Xanax] 0.5 mg PO TID PRN 04/07/18 06/25/19 History Aspirin EC [Ecotrin Low Dose] 81 mg PO HS 04/07/18 06/25/19 History DULoxetine HCL [Cymbalta] 20 mg PO DAILY 04/07/18 06/25/19 History Diltiazem HCl 60 mg PO BID 04/07/18 06/25/19 History Doxazosin [Cardura] 4 mg PO HS 04/07/18 06/25/19 History Eszopiclone [Lunesta] 3 mg PO HS 04/07/18 06/25/19 History Memantine [Namenda] 10 mg PO BID 04/07/18 06/25/19 History oxyCODONE HCL/ACETAMINOPHEN 1 tab PO TID 04/07/18 06/25/19 History [Percocet 10-325 mg] Furosemide [Lasix] 20 mg PO DAILY 04/11/19 06/25/19 History Cholecalciferol [Vitamin D3 (25 2,000 unit PO W/LUNCH 06/25/19 06/25/19 History Mcg = 1000 Iu)] Clobetasol Propionate [Temovate 1 applic TOPICAL DAILY 06/25/19 06/25/19 History 0.05% Cream] Naproxen Sodium [Aleve] 220 mg PO BID 06/25/19 06/25/19 History Phytonadione [Vitamin K] 5 mg PO HS 06/25/19 06/25/19 History Potassium Chloride [Klor-Con 20] 20 meq PO HS 06/25/19 06/25/19 History Testosterone Cypionate 200 mg IM Q28D 06/25/19 06/25/19 History [Depo-Testosterone] Thiamine HCl [Vitamin B-1] 100 mg PO DAILY 06/25/19 06/25/19 History Topiramate [Topamax] 100 mg PO BID 06/25/19 06/25/19 History predniSONE See Taper PO DAILY 06/25/19 06/25/19 History Allergies Allergy/AdvReac Type Severity Reaction Status Date / Time celecoxib Allergy Unknown Verified 06/25/19 17:14 gluten Allergy Rash/Hives Verified 06/25/19 17:14 milk Allergy Unknown Verified 06/25/19 17:14 morphine Allergy Rash/Hives Verified 06/25/19 17:14 omeprazole Allergy Rapid Verified 06/25/19 17:14 Heart Rate Physical Exam Vitals: Vital Signs Temp Pulse Pulse Resp BP Pulse Ox 06/26/19 16:08 93 06/26/19 16:00 92 15 149/75 98 06/26/19 15:59 89 06/26/19 15:00 95 14 150/79 98 06/26/19 14:30 102 H 16 167/84 100 06/26/19 14:00 110 H 21 155/81 97 06/26/19 13:00 93 12 153/75 98 06/26/19 12:00 93 21 146/86 97 06/26/19 11:35 97 06/26/19 11:00 97 13 164/91 96 06/26/19 10:00 104 H 21 148/126 97 06/26/19 09:00 113 H 17 155/87 97 06/26/19 08:10 99 06/26/19 08:00 99 21 158/81 96 06/26/19 07:00 102 H 21 132/72 95 06/26/19 06:30 101 H 22 132/72 98 06/26/19 06:00 73 14 148/80 97 06/26/19 05:30 87 16 148/80 97 06/26/19 05:00 90 16 151/77 98 06/26/19 04:30 90 20 151/77 98 06/26/19 04:00 98.0 F 90 17 143/83 98 06/26/19 03:00 80 14 160/100 97 06/26/19 02:30 89 17 160/100 97 06/26/19 02:00 107 H 23 154/81 96 06/26/19 01:30 91 18 173/81 94 L 06/26/19 01:00 97.6 F 89 22 165/84 96 06/26/19 00:30 112 H 21 165/84 95 06/26/19 00:00 97.6 F 98 22 165/84 100 06/25/19 23:02 81 16 150/72 93 L 06/25/19 21:32 80 20 137/66 90 L 06/25/19 21:05 91 16 140/67 90 L 06/25/19 19:56 97.9 F 109 H 22 159/73 91 L 06/25/19 19:51 106 H 06/25/19 19:33 100 06/25/19 19:00 26 H 77 L 06/25/19 18:10 94 20 149/66 93 L 06/25/19 17:41 92 Intake and Output 06/26/19 06/26/19 06/26/19 06:59 14:59 22:59 Intake Total 600 1000 240 Output Total 180 475 275 Balance 420 525 -35 Intake: IV 390 Sodium Chloride 0.9% 1, 390 000 ml @ 130 mls/hr IV . Q7H42M [facility] Rx#:[id number] Amount of Fluid Infused ( 500 ml) Intake, IV Titration 100 610 240 Amount Dextrose 10 % in Water 250 250 ml @ 999 mls/hr IV ONCE STA Rx#:[id number] Dextrose 5% in Water 1, 360 240 000 ml @ 120 mls/hr IV . Q9H35M [facility] with Sodium Bicarb (1 Meq/ml) 150 ml Rx#:[id number] Piperacillin-Tazobactam 3 100 .375 gm In Sodium Chloride 0.9% 100 ml @ 25 mls/hr IVPB Q8HR [facility] Rx# :[id number] Output: Urine 180 475 275 Other: Voiding Method Indwelling Catheter Indwelling Catheter # Bowel Movements 1 Weight 68.039 kg 68.039 kg - Constitutional General appearance: no acute distress - EENT Eyes: EOMI - Neck Neck: no lymphadenopathy - Respiratory Respiratory: bilateral: rhonchi - Cardiovascular Rhythm: regular Heart sounds: normal: S1, S2 Abnormal Heart Sounds: no S3 Gallop - Gastrointestinal General gastrointestinal: soft, no tenderness - Integumentary Integumentary: no cyanotic - Musculoskeletal Musculoskeletal: generalized weakness - Psychiatric Psychiatric: A&O x's 3 Results - Laboratory Findings CBC and BMP: 06/27/19 05:41 06/27/19 05:39 ABG ABG pH 7.26 (7.35-7.45) L 06/26/19 01:20 ABG pCO2 31 mmHg (35-45) L 06/26/19 01:20 ABG pO2 77 mmHg (83-108) L 06/26/19 01:20 ABG O2 Saturation 93.2 % (94-97) L 06/26/19 01:20 PT/INR, D-dimer PT 11.6 sec (9.0-12.0) 06/25/19 14:15 INR 1.1 (<1.2) 06/25/19 14:15 Abnormal lab findings: Abnormal Labs 06/25/19 06/25/19 06/25/19 14:15 14:15 17:00 WBC 18.0 H RBC 2.91 L Hgb 8.6 L Hct 27.4 L RDW 15.8 H Plt Count 148 L Neutrophils # 17.3 H Lymphocytes # 0.2 L ABG pH ABG pCO2 ABG pO2 ABG HCO3 ABG Total CO2 ABG O2 Saturation Potassium 5.6 H Chloride 111 H Carbon Dioxide 12 L BUN 73 H Creatinine 10.42 H* Glucose 154 H POC Glucose (mg/dL) Phosphorus Total Bilirubin 1.6 H Albumin 3.3 L Urine Protein 1+ H Urine Blood Moderate H Ur Leukocyte Esterase Large H Urine RBC 35 H Urine WBC 66 H Urine WBC Clumps Many H Urine Mucus Rare H 06/26/19 06/26/19 06/26/19 00:00 01:20 05:03 WBC 16.0 H RBC 2.67 L Hgb 7.8 L Hct 25.2 L RDW 16.0 H Plt Count 138 L Neutrophils # 15.4 H Lymphocytes # 0.1 L ABG pH 7.26 L ABG pCO2 31 L ABG pO2 77 L ABG HCO3 14 L ABG Total CO2 15 L ABG O2 Saturation 93.2 L Potassium Chloride Carbon Dioxide BUN Creatinine Glucose POC Glucose (mg/dL) 201 H Phosphorus Total Bilirubin Albumin Urine Protein Urine Blood Ur Leukocyte Esterase Urine RBC Urine WBC Urine WBC Clumps Urine Mucus 06/26/19 06/26/19 06/26/19 05:03 06:57 08:26 WBC RBC Hgb Hct RDW Plt Count Neutrophils # Lymphocytes # ABG pH ABG pCO2 ABG pO2 ABG HCO3 ABG Total CO2 ABG O2 Saturation Potassium 6.3 H* Chloride 112 H Carbon Dioxide 14 L BUN 79 H Creatinine 10.22 H* Glucose 112 H POC Glucose (mg/dL) 126 H 154 H Phosphorus 8.5 H Total Bilirubin Albumin Urine Protein Urine Blood Ur Leukocyte Esterase Urine RBC Urine WBC Urine WBC Clumps Urine Mucus 06/26/19 10:41 WBC RBC Hgb Hct RDW Plt Count Neutrophils # Lymphocytes # ABG pH ABG pCO2 ABG pO2 ABG HCO3 ABG Total CO2 ABG O2 Saturation Potassium 5.9 H Chloride Carbon Dioxide BUN Creatinine Glucose POC Glucose (mg/dL) Phosphorus Total Bilirubin Albumin Urine Protein Urine Blood Ur Leukocyte Esterase Urine RBC Urine WBC Urine WBC Clumps Urine Mucus - Diagnostic Findings Chest x-ray: report reviewed, image reviewed Assessment and Plan Assessment: Acute respiratory failure hypoxic on BiPAP likely related to interstitial edema fluid overload Severe sepsis Gram-negative bacteremia Metastatic nasopharyngeal cancer Acute renal failure due to obstructive uropathy Bilateral hydronephrosis Renal calculi Generalized weakness Baseline COPD not on oxygen and CPAP Plan: Continue BiPAP support currently patient is on BiPAP of 15 and 10 with 40% oxygen will try nasal cannula in between Broad-spectrum antibiotics Gentle rehydration Treatment for hyperkalemia with D50 insulin along with Kayexalate and gentle diuresis Urology consultation for his stent placement and definitive intervention for bilateral hydronephrosis We'll closely observe in the ICU critical care time 35 minutes Time with Patient: Greater than 30
--- NOTE | 2019-06-27 11:40 | P.PN ---
Subjective Progress Note Date: 06/27/19 Principal diagnosis: Acute respiratory failure hypoxic on BiPAP likely related to interstitial edema fluid overload Severe sepsis Gram-negative bacteremia Metastatic nasopharyngeal cancer Acute renal failure due to obstructive uropathy Bilateral hydronephrosis Renal calculi Generalized weakness 06/27/2019, patient is doing slightly better remains on intermittent BiPAP with nasal cannula, oxygenation is slightly better renal functions slowly improving, urology has evaluated the patient, patient is being monitored closely This is a 68-year-old male who was seen eval reexamined in the ICU data mostly obtained from the as well as the chart, 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 Guerrero locally for brain metastasis, patient also get cancer care out of town, he also follows up with urology locally for urinary problem issues he started having increasing shortness of breath which was progressive in nature occasional cough is present but started feeling weak also has increased swelling of the lower extremity, patient came into the hospital for further evaluation found to be in acute renal failure workup and evaluation revealed bilateral hydronephrosis along with renal calculi patient is admitted into the hospital for further workup and evaluation, his white cell count is 1 8,000, gram-negative rods growing in the blood, hemoglobin is 8.6, he has severe metabolic acidosis along with hyperkalemia and his BUN/creatinine was 73 and 10.4, patient will gradually have been hydrated also on Lasix at the same time, urology has been consulted for possible stent placement for obstructive uropathy, patient would like to be DO NOT RESUSCITATE, Objective - Vital Signs Vital signs: Vital Signs Temp 98.2 F 06/27/19 10:31 Pulse 103 H 06/27/19 11:10 Resp 16 06/27/19 11:00 BP 140/72 06/27/19 11:00 Pulse Ox 97 06/27/19 11:00 Intake & Output 06/26/19 06/27/19 06/27/19 18:59 06:59 18:59 Intake Total 1505 1615 380 Output Total 1250 1615 800 Balance 255 0 -420 Weight 68.039 kg 80.1 kg Intake: IV 390 20 0.9NS 20 Sodium Chloride 0.9% 1, 390 000 ml @ 130 mls/hr IV . Q7H42M [facility] Rx#:[id number] Intake, IV Titration 1115 1615 360 Amount Dextrose 10 % in Water 250 250 ml @ 999 mls/hr IV ONCE STA Rx#:[id number] Dextrose 5% in Water 1, 840 1440 360 000 ml @ 120 mls/hr IV . Q9H35M [facility] with Sodium Bicarb (1 Meq/ml) 150 ml Rx#:[id number] Piperacillin-Tazobactam 3 25 175 .375 gm In Sodium Chloride 0.9% 100 ml @ 25 mls/hr IVPB Q12H [facility] Rx# :[id number] Blood Product 0 Rc Irr As3 Unit 0 [id number] Output: Urine 1250 1615 800 Other: Voiding Method Indwelling Catheter Indwelling Catheter # Bowel Movements 1 - Exam - Constitutional General appearance: no acute distress - EENT Eyes: EOMI - Neck Neck: no lymphadenopathy - Respiratory Respiratory: bilateral: rhonchi - Cardiovascular Rhythm: regular Heart sounds: normal: S1, S2 Abnormal Heart Sounds: no S3 Gallop - Gastrointestinal General gastrointestinal: soft, no tenderness - Integumentary Integumentary: no cyanotic - Musculoskeletal Musculoskeletal: generalized weakness - Psychiatric Psychiatric: A&O x's 3 - Labs CBC & Chem 7: 06/27/19 05:41 06/27/19 05:39 Labs: Abnormal Lab Results - Last 24 Hours (Table) 06/26/19 06/26/19 06/26/19 Range/Units 10:41 17:02 18:17 WBC (3.8-10.6) k/uL RBC (4.30-5.90) m/uL Hgb (13.0-17.5) gm/dL Hct (39.0-53.0) % RDW (11.5-15.5) % Neutrophils # (1.3-7.7) k/uL Lymphocytes # (1.0-4.8) k/uL Potassium 5.9 H 5.4 H (3.5-5.1) mmol/L Chloride 111 H (98-107) mmol/L Carbon Dioxide 15 L (22-30) mmol/L BUN 84 H (9-20) mg/dL Creatinine 9.77 H* (0.66-1.25) mg/dL Glucose 113 H (74-99) mg/dL POC Glucose (mg/dL) 134 H (75-99) mg/dL Calcium (8.4-10.2) mg/dL Phosphorus (2.5-4.5) mg/dL Crossmatch 06/27/19 06/27/19 06/27/19 Range/Units 00:26 05:39 05:41 WBC 15.7 H (3.8-10.6) k/uL RBC 2.13 L (4.30-5.90) m/uL Hgb 6.4 L* (13.0-17.5) gm/dL Hct 19.6 L* (39.0-53.0) % RDW 16.1 H (11.5-15.5) % Neutrophils # 14.8 H (1.3-7.7) k/uL Lymphocytes # 0.2 L (1.0-4.8) k/uL Potassium (3.5-5.1) mmol/L Chloride 108 H (98-107) mmol/L Carbon Dioxide (22-30) mmol/L BUN 84 H (9-20) mg/dL Creatinine 9.01 H* (0.66-1.25) mg/dL Glucose 111 H (74-99) mg/dL POC Glucose (mg/dL) 139 H (75-99) mg/dL Calcium 8.0 L (8.4-10.2) mg/dL Phosphorus 7.7 H (2.5-4.5) mg/dL Crossmatch 06/27/19 06/27/19 Range/Units 06:57 07:05 WBC (3.8-10.6) k/uL RBC (4.30-5.90) m/uL Hgb (13.0-17.5) gm/dL Hct (39.0-53.0) % RDW (11.5-15.5) % Neutrophils # (1.3-7.7) k/uL Lymphocytes # (1.0-4.8) k/uL Potassium (3.5-5.1) mmol/L Chloride (98-107) mmol/L Carbon Dioxide (22-30) mmol/L BUN (9-20) mg/dL Creatinine (0.66-1.25) mg/dL Glucose (74-99) mg/dL POC Glucose (mg/dL) 133 H (75-99) mg/dL Calcium (8.4-10.2) mg/dL Phosphorus (2.5-4.5) mg/dL Crossmatch See Detail Microbiology - Last 24 Hours (Table) 06/25/19 17:00 Urine Culture - Final Urine,Voided 06/25/19 12:50 Blood Culture Gram Stain - Preliminary Blood Blood Culture - Preliminary Klebsiella pneumoniae 06/25/19 12:50 Blood Culture - Final Blood Assessment and Plan Assessment: Acute respiratory failure hypoxic on BiPAP likely related to interstitial edema fluid overload Severe sepsis Gram-negative bacteremia Metastatic nasopharyngeal cancer Acute renal failure due to obstructive uropathy Bilateral hydronephrosis Renal calculi Generalized weakness Baseline COPD not on oxygen and CPAP Plan: Continue BiPAP support currently patient is on BiPAP of 15 and 10 with 40% oxygen will try nasal cannula in between Broad-spectrum antibiotics Gentle rehydration Treatment for hyperkalemia with D50 insulin along with Kayexalate and gentle diuresis Urology consultation for his stent placement and definitive intervention for bilateral hydronephrosis We'll closely observe in the ICU critical care time 35 minutes Time with Patient: Greater than 30
--- NOTE | 2019-06-27 13:48 | P.PN ---
Subjective Progress Note Date: 06/27/19 Patient creatinine is at 9.01, deneis any flank pain at this time. Objective - Vital Signs Vital signs: Vital Signs Temp 98.2 F 06/27/19 12:51 Pulse 103 H 06/27/19 13:00 Resp 23 06/27/19 13:00 BP 145/82 06/27/19 13:00 Pulse Ox 94 L 06/27/19 13:00 Intake & Output 06/26/19 06/27/19 06/27/19 18:59 06:59 18:59 Intake Total 1505 1615 710 Output Total 1250 1615 1090 Balance 255 0 -380 Weight 68.039 kg 80.1 kg Intake: IV 390 40 0.9NS 40 Sodium Chloride 0.9% 1, 390 000 ml @ 130 mls/hr IV . Q7H42M [facility] Rx#:[id number] Intake, IV Titration 1115 1615 360 Amount Dextrose 10 % in Water 250 250 ml @ 999 mls/hr IV ONCE [facility] Rx#:[id number] Dextrose 5% in Water 1, 840 1440 360 000 ml @ 120 mls/hr IV . Q9H35M [facility] with Sodium Bicarb (1 Meq/ml) 150 ml Rx#:[id number] Piperacillin-Tazobactam 3 25 175 .375 gm In Sodium Chloride 0.9% 100 ml @ 25 mls/hr IVPB Q12H [facility] Rx# :[id number] Blood Product 310 Rc Irr As3 Unit 310 [id number] Output: Urine 1250 1615 1090 Other: Voiding Method Indwelling Catheter Indwelling Catheter Indwelling Catheter # Bowel Movements 1 - Cardiovascular Rhythm: regular - Gastrointestinal General gastrointestinal: Present: soft. Absent: distended, rigid - Psychiatric Psychiatric: Present: A&O x's 3 - Labs CBC & Chem 7: 06/27/19 05:41 06/27/19 05:39 Labs: Abnormal Lab Results - Last 24 Hours (Table) 06/26/19 06/26/19 06/27/19 Range/Units 17:02 18:17 00:26 WBC (3.8-10.6) k/uL RBC (4.30-5.90) m/uL Hgb (13.0-17.5) gm/dL Hct (39.0-53.0) % RDW (11.5-15.5) % Neutrophils # (1.3-7.7) k/uL Lymphocytes # (1.0-4.8) k/uL Potassium 5.4 H (3.5-5.1) mmol/L Chloride 111 H (98-107) mmol/L Carbon Dioxide 15 L (22-30) mmol/L BUN 84 H (9-20) mg/dL Creatinine 9.77 H* (0.66-1.25) mg/dL Glucose 113 H (74-99) mg/dL POC Glucose (mg/dL) 134 H 139 H (75-99) mg/dL Calcium (8.4-10.2) mg/dL Phosphorus (2.5-4.5) mg/dL Crossmatch 06/27/19 06/27/19 06/27/19 Range/Units 05:39 05:41 06:57 WBC 15.7 H (3.8-10.6) k/uL RBC 2.13 L (4.30-5.90) m/uL Hgb 6.4 L* (13.0-17.5) gm/dL Hct 19.6 L* (39.0-53.0) % RDW 16.1 H (11.5-15.5) % Neutrophils # 14.8 H (1.3-7.7) k/uL Lymphocytes # 0.2 L (1.0-4.8) k/uL Potassium (3.5-5.1) mmol/L Chloride 108 H (98-107) mmol/L Carbon Dioxide (22-30) mmol/L BUN 84 H (9-20) mg/dL Creatinine 9.01 H* (0.66-1.25) mg/dL Glucose 111 H (74-99) mg/dL POC Glucose (mg/dL) 133 H (75-99) mg/dL Calcium 8.0 L (8.4-10.2) mg/dL Phosphorus 7.7 H (2.5-4.5) mg/dL Crossmatch 06/27/19 Range/Units 07:05 WBC (3.8-10.6) k/uL RBC (4.30-5.90) m/uL Hgb (13.0-17.5) gm/dL Hct (39.0-53.0) % RDW (11.5-15.5) % Neutrophils # (1.3-7.7) k/uL Lymphocytes # (1.0-4.8) k/uL Potassium (3.5-5.1) mmol/L Chloride (98-107) mmol/L Carbon Dioxide (22-30) mmol/L BUN (9-20) mg/dL Creatinine (0.66-1.25) mg/dL Glucose (74-99) mg/dL POC Glucose (mg/dL) (75-99) mg/dL Calcium (8.4-10.2) mg/dL Phosphorus (2.5-4.5) mg/dL Crossmatch See Detail Microbiology - Last 24 Hours (Table) 06/25/19 17:00 Urine Culture - Final Urine,Voided 06/25/19 12:50 Blood Culture Gram Stain - Preliminary Blood Blood Culture - Preliminary Klebsiella pneumoniae Assessment and Plan Assessment: 78-year-old male admitted to the hospital with pneumonia and dyspnea. He was also noted to have acute kidney injury with creatinine of 10.88 from a baseline of 1.[address] that demonstrated bilateral mild hydronephrosis, evaluation of the ureter is limited secondary to hardware in his back, there is a potential 7 mm proximal ureteral stone. Creat still elevated this am at 9.01 Plan: I discussed with both the patient and his given his creatinine is elevated at 9.01, and the finding of bilateral hydronephrosis and a potential of right- sided proximal ureteral stone. In this time recommend he undergo his bilateral ureteral stent placement to assess if this improves his acute kidney injury. I discussed with him the risk of bleeding, infection, I also discussed the potential that he may need to be intubated for the procedure. Also discussed given his current respiratory status there is a potential that he may need to intubated postoperatively. At this time both patient and his declined any surgical intervention including ureteral stents. Discussed with him the risk of worsening his kidney function, potential need for dialysis, and even potential of if he does not undergo the procedure. They understood all the risks and still want to hold off any surgical intervention at this point. At this point we will make patient NPO past midnight for tomorrow and we'll have another discussion with him tomorrow. The family is aware of all the risk of not undergoing the procedure Time with Patient: Greater than 30
[2019-06-27 14:11] LABS: Glucose,Whole Blood 89 mg/dL (75-99)
[2019-06-27 14:41] LABS: Potassium 4.4 mmol/L (3.5-5.1)
[2019-06-27] MEDS: ASCORBIC ACID 500 MG TAB PO SCH (15:18)
[2019-06-27] MEDS: CALCIUM ACETATE 667 MG TAB PO SCH ×2 (15:18→17:21)
[2019-06-27] MEDS: CHOLECALCIFEROL 1,000 UNIT TAB PO SCH (15:18)
[2019-06-27] MEDS ORDERED: LEVOFLOXACIN 750MG-D5W PMX 750 MG in DEXTROSE/WATER 1 150ML.BAG IVPB SCH (16:00)
[2019-06-27] MEDS ORDERED: LEVOFLOXACIN 500MG-D5W PMX 500 MG in DEXTROSE/WATER 1 100ML.BAG IVPB SCH (16:00)
--- NOTE | 2019-06-27 17:36 | PN ---
PROGRESS NOTE Patient is seen for followup for acute kidney injury. He was scheduled for cystoscopy later this afternoon. However, patient's and the patient refused, given the risk of possible respiratory failure requiring intubation and vent support. Patient at this time states he does not want to do anything much and he states that he is quite tired. I discussed with him regarding possible dialysis, and at this time he states that he does not want any kind of renal replacement therapy. The patient has had good urine output. He has been maintained on Lasix. However, he was also on bicarb drip secondary to severe metabolic acidosis. Urine output has been about 150 to 130 mL/hour on 60 mg of Lasix IV q.8 hours. Acidosis has improved significantly. No ongoing diarrhea. Respiratory status is about the same, per patient. PHYSICAL EXAMINATION: On examination today, blood pressure was 140/80, heart rate of 100 per minute. He is afebrile. EXAMINATION OF THE HEART: S1 and S2. EXAMINATION OF LUNGS: Bilateral breath sounds are heard. Decreased breath sounds at bases. ABDOMEN: Soft, non-tender. Examination of lower extremities shows edema 1+ bilaterally. FOXER exam is grossly intact. LABS: Hemoglobin 6.4, white cell count 15.7, sodium 141, potassium 4.4. Serum creatinine down to 8.3 and BUN 84, phosphorus is 7.7, calcium 8.0. ASSESSMENT: 1. Acute kidney injury, obstructive uropathy, as well as possible underlying acute tubular necrosis. Patient's renal function has improved somewhat from yesterday. I will continue with the IV Lasix for now. I will discontinue the IV fluids. Patient and his do not want any renal replacement therapy and at this time they have refused a cystoscopy as well. 2. Severe anemia. No active bleeding noted. Patient is being transfused one unit packed RBCs. 3. Severe metabolic acidosis secondary to advanced renal failure, currently improved post bicarb drip. 4. Hyperphosphatemia associated with advanced renal failure. 5. Nephrolithiasis with 7 mm proximal ureteral stone. 6. Pneumonia, maintained on antibiotics. 7. Volume overload. Continue with Lasix but decrease dose. PLAN: Decrease IV fluids. Decrease Lasix. Repeat chest x-ray in a.m. Encourage increased oral intake. MMODL / IJN: [id number] /
[2019-06-27 19:03] LABS: Glucose,Whole Blood 135 mg/dL (75-99)
[2019-06-27] MEDS: ASPIRIN 81 MG PO SCH (20:55)
[2019-06-27] MEDS: DOXAZOSIN 4 MG TAB PO SCH (20:55)
[2019-06-27] MEDS: MONTELUKAST 10 MG TAB PO SCH (20:55)
[2019-06-27] MEDS: FUROSEMIDE 10 MG/ML 4 ML VIAL IV SCH (23:15)
[2019-06-27 23:47] LABS: Glucose,Whole Blood 101 mg/dL (75-99)
[2019-06-28 04:30] VITALS: TEMP 98.6
[2019-06-28] MEDS: LEVOTHYROXINE 75 MCG TAB PO SCH (04:38)
[2019-06-28] MEDS: PIPERACILLIN-TAZOBACTAM 3.375 GM in SODIUM CHLORIDE 0.9% 100 ML IVPB SCH (04:38)
[2019-06-28] MEDS: oxyCODONE-APAP 10-325MG 1 EACH TAB PO PRN (04:38)
[2019-06-28] MEDS: CALCIUM ACETATE 667 MG TAB PO SCH (04:38)
[2019-06-28 05:31] LABS: Glucose,Whole Blood 105 mg/dL (75-99)
[2019-06-28 05:41] LABS: Anisocytosis Slight; Basophils % (A) 0 %; Eosinophils % (A) 0 %; HCT 22.9 % (39.0-53.0); HGB 7.3 gm/dL (13.0-17.5); Lymphocytes # (A) 0.4 k/uL (1.0-4.8); Lymphocytes % (A) 4 %; MCH 28.6 pg (25.0-35.0); MCHC 31.7 g/dL (31.0-37.0); Mean Platelet Volume 8.9; Monocytes # (A) 0.3 k/uL (0-1.0); Monocytes % (A) 2 %; Neutrophils # (A) 10.7 k/uL (1.3-7.7); Neutrophils % (A) 93 %; Platelet Count 156 k/uL (150-450); Poikilocytosis Slight; RBC 2.54 m/uL (4.30-5.90); RDW 16.2 % (11.5-15.5); WBC 11.6 k/uL (3.8-10.6)
[2019-06-28 06:04] LABS: Phosphorus 7.2 mg/dL (2.5-4.5); Potassium 4.6 mmol/L (3.5-5.1)
--- NOTE | 2019-06-28 08:29 | P.PN ---
Subjective Progress Note Date: 06/28/19 Principal diagnosis: This continue progress on a 68-year-old white male who essentially minute for respiratory failure and multifocal pneumonia. He is requesting hospice consult today due to the fact that he has multiple comorbidities and has difficulty swallowing. He states no voiding difficulties. No significant chest pain. Significant respiratory distress is noted once he is off BiPAP. No voiding difficulties. Objective - Vital Signs Vital signs: Vital Signs Temp 98.6 F 06/28/19 04:00 Pulse 84 06/28/19 07:00 Resp 18 06/28/19 07:00 BP 140/68 06/28/19 07:00 Pulse Ox 97 06/28/19 07:00 Intake & Output 06/27/19 06/28/19 06/28/19 18:59 06:59 18:59 Intake Total 880 245 Output Total 1720 1005 Balance -840 -760 Weight 78.5 kg Intake: IV 60 220 0.9NS 60 120 Piperacillin-Tazobactam 3 100 .375 gm In Sodium Chloride 0.9% 100 ml @ 25 mls/hr IVPB Q12H [facility] Rx# :[id number] Intake, IV Titration 510 25 Amount Dextrose 5% in Water 1, 360 000 ml @ 120 mls/hr IV . Q9H35M [facility] with Sodium Bicarb (1 Meq/ml) 150 ml Rx#:[id number] Levofloxacin 500Mg-D5w 100 Pmx 500 mg In Dextrose/ Water 1 100ml.bag @ 100 mls/hr IVPB Q48H [facility] Rx#: [id number] Piperacillin-Tazobactam 3 50 25 .375 gm In Sodium Chloride 0.9% 100 ml @ 25 mls/hr IVPB Q12H [facility] Rx# :[id number] Blood Product 310 Rc Irr As3 Unit 310 [id number] Output: Urine 1720 1005 Other: Voiding Method Indwelling Catheter Indwelling Catheter - Constitutional General appearance: Present: average body habitus - EENT Eyes: Absent: abnormal pupil - Respiratory Respiratory: bilateral: diminished - Cardiovascular Rhythm: regular Heart sounds: normal: S1, S2 Abnormal Heart Sounds: Absent: S3 Gallop - Gastrointestinal General gastrointestinal: Absent: splenomegaly, tenderness - Labs CBC & Chem 7: 06/28/19 05:15 06/28/19 05:15 Labs: Abnormal Lab Results - Last 24 Hours (Table) 06/27/19 06/27/19 06/27/19 Range/Units 07:05 14:11 19:01 WBC (3.8-10.6) k/uL RBC (4.30-5.90) m/uL Hgb (13.0-17.5) gm/dL Hct (39.0-53.0) % RDW (11.5-15.5) % Neutrophils # (1.3-7.7) k/uL Lymphocytes # (1.0-4.8) k/uL BUN 84 H (9-20) mg/dL Creatinine 8.35 H* (0.66-1.25) mg/dL POC Glucose (mg/dL) 135 H (75-99) mg/dL Calcium 8.0 L (8.4-10.2) mg/dL Phosphorus (2.5-4.5) mg/dL Crossmatch See Detail 06/27/19 06/28/19 06/28/19 Range/Units 23:46 05:15 05:15 WBC 11.6 H (3.8-10.6) k/uL RBC 2.54 L (4.30-5.90) m/uL Hgb 7.3 L (13.0-17.5) gm/dL Hct 22.9 L (39.0-53.0) % RDW 16.2 H (11.5-15.5) % Neutrophils # 10.7 H (1.3-7.7) k/uL Lymphocytes # 0.4 L (1.0-4.8) k/uL BUN 84 H (9-20) mg/dL Creatinine 8.83 H* (0.66-1.25) mg/dL POC Glucose (mg/dL) 101 H (75-99) mg/dL Calcium 8.0 L (8.4-10.2) mg/dL Phosphorus 7.2 H (2.5-4.5) mg/dL Crossmatch 06/28/19 Range/Units 05:30 WBC (3.8-10.6) k/uL RBC (4.30-5.90) m/uL Hgb (13.0-17.5) gm/dL Hct (39.0-53.0) % RDW (11.5-15.5) % Neutrophils # (1.3-7.7) k/uL Lymphocytes # (1.0-4.8) k/uL BUN (9-20) mg/dL Creatinine (0.66-1.25) mg/dL POC Glucose (mg/dL) 105 H (75-99) mg/dL Calcium (8.4-10.2) mg/dL Phosphorus (2.5-4.5) mg/dL Crossmatch Microbiology - Last 24 Hours (Table) 06/25/19 17:00 Urine Culture - Final Urine,Voided Assessment and Plan (1) Sepsis Current Visit: Yes Status: Acute Code(s): A41.9 - SEPSIS, UNSPECIFIED ORGANISM SNOMED Code(s): 99430521 (2) Community acquired bacterial pneumonia Current Visit: No Status: Acute Code(s): J15.9 - UNSPECIFIED BACTERIAL PNEUMONIA SNOMED Code(s): 275085605 (3) GERD (gastroesophageal reflux disease) Current Visit: No Status: Acute Code(s): K21.9 - GASTRO-ESOPHAGEAL REFLUX DISEASE WITHOUT ESOPHAGITIS SNOMED Code(s): 022458948 (4) Hyperpyrexia Current Visit: No Status: Acute Code(s): R50.9 - FEVER, UNSPECIFIED SNOMED Code(s): 126377554 (5) UTI (urinary tract infection) Current Visit: No Status: Acute Code(s): N39.0 - URINARY TRACT INFECTION, SITE NOT SPECIFIED SNOMED Code(s): 10076444 Plan: We'll going consult hospice. Comfort care will be instituted at the patient's request. Prognosis is guarded secondary to his multiple comorbidities. See orders otherwise.
[2019-06-28] MEDS: HYDROmorphone 0.5 MG/0.5 ML SYRINGE IVP PRN ×3 (08:42→10:58)
[2019-06-28] MEDS: IPRATROPIUM-ALBUTEROL 3 ML NEB INHALATION SCH (08:50)
--- NOTE | 2019-06-28 08:52 | XR ---
EXAMINATION TYPE: XR chest 1V portable DATE OF EXAM: 06/28/2019 COMPARISON: Prior chest x-ray 06/27/2019 HISTORY: Abnormal chest x-ray, pneumonia TECHNIQUE: Single frontal view of the chest is obtained. FINDINGS: Bilateral airspace disease is again seen and shows a similar appearance. Heart shows no de finite change. Postprocedural changes are stable, there are overlying cardiac leads. IMPRESSION: Stable findings, correlate for bilateral pneumonia versus edema
[2019-06-28] MEDS ORDERED: ENOXAPARIN 40 MG/0.4 ML SYRINGE SQ SCH (09:00)
[2019-06-28] MEDS ORDERED: ENOXAPARIN 30 MG/0.3 ML SYRINGE SQ SCH (09:00)
[2019-06-28 09:16] VITALS: RESP 23
[2019-06-28] MEDS: PANTOPRAZOLE 40 MG TABLET PO SCH (09:20)
[2019-06-28] MEDS: TOPIRAMATE 100 MG TAB PO SCH (09:20)
[2019-06-28] MEDS: THIAMINE 100 MG TAB PO SCH (09:20)
[2019-06-28] MEDS: DONEPEZIL 10 MG TAB PO SCH (09:21)
[2019-06-28] MEDS: LORATADINE 10 MG TAB PO SCH (09:21)
[2019-06-28] MEDS: DILTIAZEM ORAL 60 MG TAB PO SCH (09:21)
[2019-06-28] MEDS: DULoxetine HCL 20 MG CAPSULE.DR PO SCH (09:21)
[2019-06-28] MEDS: CLOBETASOL PROP 0.05% CR 15GM TOPICAL SCH (09:21)
[2019-06-28] MEDS: MULTIVITAMINS, THERA 1 EACH TAB PO SCH (09:22)
[2019-06-28] MEDS: MEMANTINE 10 MG TAB PO SCH (09:22)
[2019-06-28] MEDS: FUROSEMIDE 10 MG/ML 4 ML VIAL IV SCH (09:27)
[2019-06-28 11:01] VITALS: BP 155/77; PULSE 95
--- NOTE | 2019-06-28 15:23 | P.PN ---
Subjective Progress Note Date: 06/28/19 Principal diagnosis: Acute respiratory failure hypoxic on BiPAP likely related to interstitial edema fluid overload Severe sepsis Gram-negative bacteremia Metastatic nasopharyngeal cancer Acute renal failure due to obstructive uropathy Bilateral hydronephrosis Renal calculi Generalized weakness 06/28/2019, patient seen eval examined during the morning rounds labs reviewed medications reviewed, patient has expressed desire to be comfort care measures, given metastatic cancer of oropharyngeal area agree with current plan of care continue pain medications how follow as needed 06/27/2019, patient is doing slightly better remains on intermittent BiPAP with nasal cannula, oxygenation is slightly better renal functions slowly improving, urology has evaluated the patient, patient is being monitored closely This is a 68-year-old male who was seen eval reexamined in the ICU data mostly obtained from the as well as the chart, 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 Guerrero locally for brain metastasis, patient also get cancer care out of town, he also follows up with urology locally for urinary problem issues he started having increasing shortness of breath which was progressive in nature occasional cough is present but started feeling weak also has increased swelling of the lower extremity, patient came into the hospital for further evaluation found to be in acute renal failure workup and evaluation revealed bilateral hydronephrosis along with renal calculi patient is admitted into the hospital for further workup and evaluation, his white cell count is 18,000, gram-negative rods growing in the blood, hemoglobin is 8.6, he has severe metabolic acidosis along with hyperkalemia and his BUN/creatinine was 73 and 10.4, patient will gradually have been hydrated also on Lasix at the same time, urology has been consulted for possible stent placement for obstructive uropathy, patient would like to be DO NOT RESUSCITATE, Objective - Vital Signs Vital signs: Vital Signs Temp 98.6 F 06/28/19 04:00 Pulse 95 06/28/19 11:00 Resp 23 06/28/19 08:00 BP 155/77 06/28/19 11:00 Pulse Ox 98 06/28/19 11:00 Intake & Output 06/27/19 06/28/19 06/28/19 18:59 06:59 18:59 Intake Total 880 245 40 Output Total 1720 1005 550 Balance -840 -760 -271 Weight 78.5 kg Intake: IV 60 220 40 0.9NS 60 120 40 Piperacillin-Tazobactam 3 100 .375 gm In Sodium Chloride 0.9% 100 ml @ 25 mls/hr IVPB Q12H [facility] Rx# :[id number] Intake, IV Titration 510 25 Amount Dextrose 5% in Water 1, 360 000 ml @ 120 mls/hr IV . Q9H35M [facility] with Sodium Bicarb (1 Meq/ml) 150 ml Rx#:[id number] Levofloxacin 500Mg-D5w 100 Pmx 500 mg In Dextrose/ Water 1 100ml.bag @ 100 mls/hr IVPB Q48H [facility] Rx#: [id number] Piperacillin-Tazobactam 3 50 25 .375 gm In Sodium Chloride 0.9% 100 ml @ 25 mls/hr IVPB Q12H [facility] Rx# :[id number] Blood Product 310 Rc Irr As3 Unit 310 [id number] Output: Urine 1720 1005 550 Other: Voiding Method Indwelling Catheter Indwelling Catheter Indwelling Catheter - Exam - Constitutional General appearance: no acute distress - EENT Eyes: EOMI - Neck Neck: no lymphadenopathy - Respiratory Respiratory: bilateral: rhonchi - Cardiovascular Rhythm: regular Heart sounds: normal: S1, S2 Abnormal Heart Sounds: no S3 Gallop - Gastrointestinal General gastrointestinal: soft, no tenderness - Integumentary Integumentary: no cyanotic - Musculoskeletal Musculoskeletal: generalized weakness - Psychiatric Psychiatric: A&O x's 3 - Labs CBC & Chem 7: 06/28/19 05:15 06/28/19 05:15 Labs: Abnormal Lab Results - Last 24 Hours (Table) 06/27/19 06/27/19 06/28/19 Range/Units 19:01 23:46 05:15 WBC 11.6 H (3.8-10.6) k/uL RBC 2.54 L (4.30-5.90) m/uL Hgb 7.3 L (13.0-17.5) gm/dL Hct 22.9 L (39.0-53.0) % RDW 16.2 H (11.5-15.5) % Neutrophils # 10.7 H (1.3-7.7) k/uL Lymphocytes # 0.4 L (1.0-4.8) k/uL BUN (9-20) mg/dL Creatinine (0.66-1.25) mg/dL POC Glucose (mg/dL) 135 H 101 H (75-99) mg/dL Calcium (8.4-10.2) mg/dL Phosphorus (2.5-4.5) mg/dL 06/28/19 06/28/19 Range/Units 05:15 05:30 WBC (3.8-10.6) k/uL RBC (4.30-5.90) m/uL Hgb (13.0-17.5) gm/dL Hct (39.0-53.0) % RDW (11.5-15.5) % Neutrophils # (1.3-7.7) k/uL Lymphocytes # (1.0-4.8) k/uL BUN 84 H (9-20) mg/dL Creatinine 8.83 H* (0.66-1.25) mg/dL POC Glucose (mg/dL) 105 H (75-99) mg/dL Calcium 8.0 L (8.4-10.2) mg/dL Phosphorus 7.2 H (2.5-4.5) mg/dL Microbiology - Last 24 Hours (Table) 06/25/19 12:50 Blood Culture Gram Stain - Final Blood Blood Culture - Final Klebsiella pneumoniae Assessment and Plan Assessment: Acute respiratory failure hypoxic on BiPAP likely related to interstitial edema fluid overload Severe sepsis Gram-negative bacteremia Metastatic nasopharyngeal cancer Acute renal failure due to obstructive uropathy Bilateral hydronephrosis Renal calculi Generalized weakness Baseline COPD not on oxygen and CPAP Plan: Initiated comfort measures protocol will follow as needed Time with Patient: Greater than 30
--- NOTE | 2019-06-28 18:50 | PN ---
PROGRESS NOTE Patient was seen this morning for followup for acute kidney injury, mainly obstructive uropathy with bilateral hydronephrosis with no plans for cystoscopy. Patient is considering hospice care. PHYSICAL EXAMINATION: On examination this morning, blood pressure was 147/87, heart rate 89 per minute. Patient is afebrile. EXAMINATION OF THE HEART: S1 and S2. EXAMINATION OF LUNGS: Decreased breath sounds at bases. ABDOMEN: Soft, non-tender. Examination of lower extremities shows trace edema bilaterally. [employer] exam shows patient moving all 4 extremities. He is currently maintained on BiPAP. LABS: Hemoglobin 7.3, sodium 140, potassium 4.6, BUN 84, creatinine 8.83. ASSESSMENT: 1. Acute kidney injury, obstructive uropathy. Patient has refused cystoscopy and he is considering hospice care. 2. Severe metabolic acidosis secondary to advanced renal failure, now improved post bicarb drip. 3. Hyperphosphatemia associated with renal failure. 4. Nephrolithiasis; 7 mm proximal ureteral stone. 5. Pneumonia, maintained on antibiotics. 6. Volume overload, maintained on IV Lasix. 7. History of tonsillar cancer, status post chemotherapy and radiation therapy, currently metastatic. PLAN: Continue IV Lasix for now. No plans for dialysis. Patient is considering hospice care. MMODL / IJN: [id number] /
== END 2019-06-28 11:06 | disposition hospice, inpatient (51) | DRG 871 ==
LOC: EC 13:55 → 3SCARD 15:50 → 2SICU 06-26 00:33
PROVIDERS: ADMIT Family Medicine; ATTEND Family Medicine
PROC: 5A09457 Assistance with Respiratory Ventilation, 24-96 Consecutive Hours, Continuous Positive Airway Pressure (ICD-10-PCS; principal; 2019-06-25)
DX: A41.59 Other Gram-negative sepsis (principal); J96.01 Acute respiratory failure with hypoxia; J15.9 Unspecified bacterial pneumonia; N17.9 Acute kidney failure, unspecified; C79.31 Secondary malignant neoplasm of brain; E87.2 Acidosis; J44.0 Chronic obstructive pulmonary disease with (acute) lower respiratory infection; N13.6 Pyonephrosis; R65.20 Severe sepsis without septic shock; Z87.891 Personal history of nicotine dependence; Z85.818 Personal history of malignant neoplasm of other sites of lip, oral cavity, and pharynx; Z51.5 Encounter for palliative care; Z66 Do not resuscitate; D64.9 Anemia, unspecified; E03.9 Hypothyroidism, unspecified; E11.9 Type 2 diabetes mellitus without complications; E83.39 Other disorders of phosphorus metabolism; E87.5 Hyperkalemia; E87.70 Fluid overload, unspecified; F03.90 Unspecified dementia, unspecified severity, without behavioral disturbance, psychotic disturbance, mood disturbance, and anxiety; F32.9 Major depressive disorder, single episode, unspecified; H81.09 Meniere's disease, unspecified ear; K21.9 Gastro-esophageal reflux disease without esophagitis; K90.0 Celiac disease; M41.9 Scoliosis, unspecified; N40.0 Benign prostatic hyperplasia without lower urinary tract symptoms; R13.10 Dysphagia, unspecified; Z79.82 Long term (current) use of aspirin; Z79.890 Hormone replacement therapy; Z79.899 Other long term (current) drug therapy; Z92.21 Personal history of antineoplastic chemotherapy; Z92.3 Personal history of irradiation; Z88.5 Allergy status to narcotic agent; Z88.8 Allergy status to other drugs, medicaments and biological substances; Z91.011 Allergy to milk products; G89.29 Other chronic pain; Z98.1 Arthrodesis status; R26.81 Unsteadiness on feet
CPT/HCPCS: 36415; 36600; 51702; 71045; 71046; 74176; 76770; 80048; 80053; 81001; 82550; 82805; 83605; 83735; 83880; 84100; 84132; 84484; 85025; 85610; 85730; 86850; 86900; 86901; 86920; 87040; 87077; 87086; 87186; 87502; 93005; 94640; 94660; 96365; 96366; 96367; 96375; 99291

== ENCOUNTER 2019-06-28 10:19 | Inpatient (IN) | payer MEDICAID ==
[2019-06-28] MEDS ORDERED: HYDROmorphone 0.5 MG/0.5 ML SYRINGE IVP PRN (10:35)
[2019-06-28] MEDS ORDERED: ACETAMINOPHEN SUPPOSITORY 650 MG SUPP RECTAL PRN (10:35)
[2019-06-28] MEDS: SCOPOLAMINE 1.5MG/72HR PATCH TRANSDERM SCH ×2 (11:45→21:49)
[2019-06-28] MEDS: IPRATROPIUM-ALBUTEROL 3 ML NEB INHALATION SCH ×3 (11:47→19:49)
[2019-06-28] MEDS: HYDROmorphone 0.5 MG/0.5 ML SYRINGE IVP PRN (11:47)
[2019-06-28] MEDS: LORazepam 2 MG/ML INJ IV PRN (12:47)
[2019-06-28] MEDS: HYDROmorphone (PF) 50 MG in SODIUM CHLORIDE 0.9% 45 ML IV SCH ×2 (14:23→21:53)
[2019-06-28] MEDS: CLOBETASOL PROP 0.05% CR 15GM TOPICAL SCH (14:27)
[2019-06-28 22:48] VITALS: BP 143/69; TEMP 98.2
[2019-06-29 02:05] VITALS: RESP 14
[2019-06-29] MEDS: HYDROmorphone (PF) 50 MG in SODIUM CHLORIDE 0.9% 45 ML IV SCH ×4 (06:34→20:43)
[2019-06-29] MEDS: IPRATROPIUM-ALBUTEROL 3 ML NEB INHALATION SCH ×4 (07:30→20:03)
[2019-06-29] MEDS: HYDROmorphone 0.5 MG/0.5 ML SYRINGE IVP PRN (09:05)
[2019-06-29] MEDS: LORazepam 2 MG/ML INJ IV PRN ×2 (11:29→21:49)
[2019-06-29] MEDS: CLOBETASOL PROP 0.05% CR 15GM TOPICAL SCH (11:33)
[2019-06-29 15:20] VITALS: PULSE 90
[2019-06-30] MEDS: HYDROmorphone (PF) 50 MG in SODIUM CHLORIDE 0.9% 45 ML IV SCH ×4 (00:24→11:13)
[2019-06-30] MEDS: IPRATROPIUM-ALBUTEROL 3 ML NEB INHALATION SCH ×5 (01:24→19:30)
[2019-06-30] MEDS: LORazepam 2 MG/ML INJ IV PRN ×6 (02:07→20:24)
[2019-06-30] MEDS: CLOBETASOL PROP 0.05% CR 15GM TOPICAL SCH (08:50)
[2019-06-30] MEDS ORDERED: IPRATROPIUM-ALBUTEROL 3 ML NEB INHALATION PRN (10:56)
[2019-06-30] MEDS: FAMOTIDINE 20 MG/2 ML VIAL IV SCH ×2 (14:09→21:09)
[2019-06-30] MEDS: diphenhydrAMINE 50 MG/ML 1 ML VIAL IVP SCH ×2 (14:09→19:47)
[2019-06-30] MEDS: MORPHINE SULFATE (100 MG/2 ML) 100 MG in SODIUM CHLORIDE 0.9% 100 ML IV SCH ×5 (15:06→22:58)
--- NOTE | 2019-06-30 15:30 | PN ---
PROGRESS NOTE DATE OF SERVICE: 06/30/2019 I am covering for Dr. Stack. This 68-year-old gentleman who was admitted with COPD, acute exacerbation, as well as acute respiratory failure also had severe sepsis and possible pneumonia. Patient also has renal failure and metastatic nasopharyngeal cancer history, also. The patient is being closely monitored. The patient is on IV Dilaudid drip at this time, but Dilaudid is not available at this time. Patient apparently had some itching because of morphine previously. PHYSICAL EXAMINATION: The patient is sedated. Pulse is 128, blood pressure 140/69, respirations 16, temperature 98.2, pulse ox 88% on 5 L. HEENT: Conjunctivae normal. Oral mucosa moist. NECK: No jugular venous distention. CARDIOVASCULAR SYSTEM: S1, S2 muffled. RESPIRATORY SYSTEM: Breath sounds diminished at the bases. Bilateral scattered rhonchi and crackles. ABDOMEN: Soft, non-tender. LEGS: No edema. No swelling. NERVOUS SYSTEM: Diffusely weak. LABS: Not available. ASSESSMENT: 1. Chronic obstructive pulmonary disease with bronchial asthma, acute exacerbation, with acute hypoxic respiratory failure, status post BiPAP. 2. Pneumonia, possibly Gram-negative, with severe sepsis, present on admission. 3. Metastatic nasopharyngeal carcinoma. 4. Acute renal failure, multifactorial. 5. Bilateral hydronephrosis. 6. Renal calculi. 7. Generalized weakness. 8. History of dementia. 9. History of Meniere's. 10.History of degenerative joint disease. 11.History of depression. 12.Remote history of nicotine dependence. 13.NO CODE, NO CPR, NO VENT. 14.Under hospice care. RECOMMENDATIONS AND DISCUSSION: In this 68-year-old gentleman who presented with multiple complex medical issues, as listed above, at this time I recommend to transition to morphine drip and use Benadryl on an [id number] basis and also use Pepcid 20 IV b.i.d. Can also use steroids on a p.r.n. basis if there is any itching documented or any skin rash noted. Otherwise, we will continue to monitor. Titrate the morphine drip to comfort. Further recommendations to follow. Prognosis guarded. Discussed with multiple members of the family, who understand and agree. Further recommendations to follow. MMODL / IJN: [id number] /
[2019-07-01] MEDS: diphenhydrAMINE 50 MG/ML 1 ML VIAL IVP SCH ×4 (00:02→17:49)
[2019-07-01] MEDS: MORPHINE SULFATE (100 MG/2 ML) 100 MG in SODIUM CHLORIDE 0.9% 100 ML IV SCH ×7 (01:36→15:05)
[2019-07-01] MEDS: LORazepam 2 MG/ML INJ IV PRN ×5 (02:06→18:41)
[2019-07-01] MEDS: IPRATROPIUM-ALBUTEROL 3 ML NEB INHALATION SCH ×4 (08:18→19:45)
[2019-07-01] MEDS: FAMOTIDINE 20 MG/2 ML VIAL IV SCH (09:22)
[2019-07-01] MEDS: CLOBETASOL PROP 0.05% CR 15GM TOPICAL SCH (09:22)
[2019-07-01] MEDS: ATROPINE OPHTH SOLN 1% 5ML BTL SUBLINGUAL PRN ×2 (10:31→16:28)
[2019-07-01] MEDS: SCOPOLAMINE 1.5MG/72HR PATCH TRANSDERM SCH (12:02)
[2019-07-01] MEDS ORDERED: MORPHINE SULFATE (100 MG/2 ML) 500 MG in SODIUM CHLORIDE 0.9% 500 ML 500 ML IV SCH (16:00)
--- NOTE | 2019-07-01 20:43 | PN ---
PROGRESS NOTE DATE OF SERVICE: 07/01/2019 I am covering for Dr. Stack. This 68-year-old gentleman who was admitted with COPD acute exacerbation is on comfort measures at this time. The patient has tried_morphine and 52 mg at this time. The patient being closely monitored. Continues to be unresponsive. EXAM: Pulse is 88. Respirations 14. HEENT: Conjunctivae pale. Oral mucosa moist. Neck is no jugular venous distention. Cardiovascular system: S1, S2 muffled. Respirations: Bilateral scattered rhonchi and crackles. ABDOMEN: Soft. Nervous system: Sedated. LABS: Not available. ASSESSMENT: 1. Chronic obstructive pulmonary disease and bronchial asthma acute exacerbation with acute hypoxic respiratory failure status post BiPAP. 2. Pneumonia possibly gram-negative with severe sepsis present on admission. 3. Metastatic nasopharyngeal carcinoma. 4. Acute renal failure, multifactorial. 5. Bilateral hydronephrosis. 6. Renal calculi. 7. Generalized weakness. 8. History of dementia. 9. History of Meniere's disease. 10.History of degenerative joint disease. 11.History of depression. 12.Remote history of nicotine dependence. 13.NO CODE, NO CPR, NO VENT. 14.Under hospice care. RECOMMENDATIONS AND DISCUSSION: Recommend to continue current medications, symptomatic treatment, management. The patient does not have any allergy to morphine. Currently I would recommend to titrate the morphine for comfort. Otherwise, continue the rest of medications per Hospice and Dr. Osuna's will follow. MMODL / ESTRELLITAN: [id number] / MTDD
--- NOTE | 2019-07-04 14:37 | P.PN ---
Subjective Progress Note Date: 06/29/19 Principal diagnosis: Hospice care This is a continue progress note on a patient who decided to go with hospice care given his acute renal with sepsis. He does not not wish to have any type of artificial Respiratory support. The patient is now on hospice care. Objective - Vital Signs Vital signs: Vital Signs Temp 98.2 F 06/28/19 22:47 Pulse 90 06/29/19 15:32 Resp 14 06/29/19 08:00 BP 143/69 06/28/19 22:47 Pulse Ox 66 L 06/29/19 20:04 - Constitutional General appearance: Present: average body habitus - EENT Eyes: Absent: abnormal pupil - Respiratory Respiratory: bilateral: diminished - Cardiovascular Rhythm: regular Heart sounds: normal: S1, S2 Abnormal Heart Sounds: Absent: S3 Gallop - Gastrointestinal General gastrointestinal: Present: soft. Absent: tenderness - Musculoskeletal Musculoskeletal: Present: generalized weakness - Psychiatric Psychiatric: Present: A&O x's 3, appropriate affect Assessment and Plan (1) Acute renal failure Status: Acute Code(s): N17.9 - ACUTE KIDNEY FAILURE, UNSPECIFIED SNOMED Code(s): 57570836 (2) Community acquired bacterial pneumonia Status: Acute Code(s): J15.9 - UNSPECIFIED BACTERIAL PNEUMONIA SNOMED Code(s): 842404864 (3) Multifocal pneumonia Status: Acute Code(s): J18.9 - PNEUMONIA, UNSPECIFIED ORGANISM SNOMED Code(s): 112489262 (4) Sepsis Status: Acute Code(s): A41.9 - SEPSIS, UNSPECIFIED ORGANISM SNOMED Code(s): 63369123 Plan: Continue supportive care with hospice. Anticipate demise soon given his overall renal failure and poor prognosis. Time with Patient: Greater than 30
--- NOTE | 2019-07-04 18:44 | P.DS ---
Providers Date of admission: 06/28/19 11:06 Attending physician: Ricardo Stack Primary care physician: Dino Ali - Discharge Diagnosis(es) (1) Acute renal failure Status: Acute (2) Community acquired bacterial pneumonia Status: Acute (3) Multifocal pneumonia Status: Acute (4) Sepsis Status: Acute Hospital Course: This discharge summary and is a 8-year-old white male Center admitted for multifocal pneumonia with severe sepsis and acute failure. After significant discussion with the patient, he decided to enter hospice treatment appropriately. The patient then several days later due to his multiple comorbidities. Plan - Discharge Summary New Discharge Prescriptions: No Action Multivitamins, Thera [Theragran] 1 tab PO DAILY Montelukast [Singulair] 10 mg PO HS fentaNYL [Duragesic 100MCG/HR] 100 mcg TRANSDERM Q48H Levothyroxine Sodium [Synthroid] 75 mcg PO DAILY Lansoprazole 30 mg PO DAILY Donepezil [Aricept] 10 mg PO BID Primidone [Mysoline] 50 mg PO DAILY PRN PRN Reason: Seizures Vitamin E (Dl,Tocopheryl Acet) [Vitamin E] 400 unit PO HS Fexofenadine HCl 180 mg PO DAILY Ascorbic Acid [Vitamin C] 500 mg PO W/LUNCH ALPRAZolam [Xanax] 0.5 mg PO TID PRN PRN Reason: Anxiety Aspirin EC [Ecotrin Low Dose] 81 mg PO HS Diltiazem HCl 60 mg PO BID Doxazosin [Cardura] 4 mg PO HS DULoxetine HCL [Cymbalta] 20 mg PO DAILY Eszopiclone [Lunesta] 3 mg PO HS Memantine [Namenda] 10 mg PO BID oxyCODONE HCL/ACETAMINOPHEN [Percocet 10-325 mg] 1 tab PO TID Furosemide [Lasix] 20 mg PO DAILY predniSONE See Taper PO DAILY Phytonadione [Vitamin K] 5 mg PO HS Thiamine HCl [Vitamin B-1] 100 mg PO DAILY Cholecalciferol [Vitamin D3 (25 Mcg = 1000 Iu)] 2,000 unit PO W/LUNCH Potassium Chloride [Klor-Con 20] 20 meq PO HS Clobetasol Propionate [Temovate 0.05% Cream] 1 applic TOPICAL DAILY Naproxen Sodium [Aleve] 220 mg PO BID Topiramate [Topamax] 100 mg PO BID Testosterone Cypionate [Depo-Testosterone] 200 mg IM Q28D Discharge Medication List Donepezil [Aricept] 10 mg PO BID 03/04/15 [History] Lansoprazole 30 mg PO DAILY 03/04/15 [History] Levothyroxine Sodium [Synthroid] 75 mcg PO DAILY 03/04/15 [History] Montelukast [Singulair] 10 mg PO HS 03/04/15 [History] Multivitamins, Thera [Theragran] 1 tab PO DAILY 03/04/15 [History] fentaNYL [Duragesic 100MCG/HR] 100 mcg TRANSDERM Q48H 03/04/15 [History] Primidone [Mysoline] 50 mg PO DAILY PRN 06/19/15 [History] Ascorbic Acid [Vitamin C] 500 mg PO W/LUNCH 09/22/16 [History] Fexofenadine HCl 180 mg PO DAILY 09/22/16 [History] Vitamin E (Dl,Tocopheryl Acet) [Vitamin E] 400 unit PO HS 09/22/16 [History] ALPRAZolam [Xanax] 0.5 mg PO TID PRN 04/07/18 [History] Aspirin EC [Ecotrin Low Dose] 81 mg PO HS 04/07/18 [History] DULoxetine HCL [Cymbalta] 20 mg PO DAILY 04/07/18 [History] Diltiazem HCl 60 mg PO BID 04/07/18 [History] Doxazosin [Cardura] 4 mg PO HS 04/07/18 [History] Eszopiclone [Lunesta] 3 mg PO HS 04/07/18 [History] Memantine [Namenda] 10 mg PO BID 04/07/18 [History] oxyCODONE HCL/ACETAMINOPHEN [Percocet 10-325 mg] 1 tab PO TID 04/07/18 [History] Furosemide [Lasix] 20 mg PO DAILY 04/11/19 [History] Cholecalciferol [Vitamin D3 (25 Mcg = 1000 Iu)] 2,000 unit PO W/LUNCH 06/25/19 [History] Clobetasol Propionate [Temovate 0.05% Cream] 1 applic TOPICAL DAILY 06/25/19 [History] Naproxen Sodium [Aleve] 220 mg PO BID 06/25/19 [History] Phytonadione [Vitamin K] 5 mg PO HS 06/25/19 [History] Potassium Chloride [Klor-Con 20] 20 meq PO HS 06/25/19 [History] Testosterone Cypionate [Depo-Testosterone] 200 mg IM Q28D 06/25/19 [History] Thiamine HCl [Vitamin B-1] 100 mg PO DAILY 06/25/19 [History] Topiramate [Topamax] 100 mg PO BID 06/25/19 [History] predniSONE See Taper PO DAILY 06/25/19 [History] Discharge Disposition: - Preliminary Cause of Preliminary Cause of : Pneumonia with sepsis and acute renal failure
== END 2019-07-01 21:10 | disposition expired | DRG 951 ==
LOC: 2SICU 11:06 → 5NMEDONC 12:30
PROVIDERS: ADMIT Family Medicine; ATTEND Family Medicine
DX: Z51.5 Encounter for palliative care (principal); A41.9 Sepsis, unspecified organism; J15.9 Unspecified bacterial pneumonia; J96.01 Acute respiratory failure with hypoxia; R65.20 Severe sepsis without septic shock; J44.0 Chronic obstructive pulmonary disease with (acute) lower respiratory infection; J44.1 Chronic obstructive pulmonary disease with (acute) exacerbation; J45.901 Unspecified asthma with (acute) exacerbation; N17.9 Acute kidney failure, unspecified; N13.2 Hydronephrosis with renal and ureteral calculous obstruction; Z66 Do not resuscitate; C11.9 Malignant neoplasm of nasopharynx, unspecified; F03.90 Unspecified dementia, unspecified severity, without behavioral disturbance, psychotic disturbance, mood disturbance, and anxiety; H81.09 Meniere's disease, unspecified ear; Z87.891 Personal history of nicotine dependence
CPT/HCPCS: 94640